=== PATIENT | male | born 1955 | race Caucasian/White ===

== ENCOUNTER 2020-08-23 06:29 | Emergency (ER) | payer MEDICARE ==
[~2020-08-23] VITALS: Ht 188 cm; Wt 89.6 kg
[2020-08-23] MEDS ORDERED: CLAR10CA3 PO (06:58)
[2020-08-23] MEDS ORDERED: TRAM50TA2 PO (06:58)
[2020-08-23] MEDS ORDERED: FAMC500T PO (06:58)
[2020-08-23] MEDS ORDERED: ONDA-83 PO (06:58)
[2020-08-23] MEDS ORDERED: NS 1,000 ML in IV 1 EA IV ONE (08:00)
[2020-08-23 08:41] LABS: HEMATOCRIT 29.7 % (42.0-52.0); HEMOGLOBIN 9.8 g/dl (13.5-17.5); MEAN CORPUSCULAR HEMOGLOBIN 34.8 pg (27.0-33.0); MEAN CORPUSCULAR VOLUME 105.3 fl (80.0-96.0); RED BLOOD COUNT 2.82 10^6/uL (4.30-6.10)
--- NOTE | 2020-08-23 08:42 | REP ---
INDICATION: fever. COMPARISON: None. TECHNIQUE: Single portable AP view of the chest was performed. FINDINGS: There are mild bibasilar fibro atelectatic changes. There is no definite acute infiltrate. There is mild elevation of the right hemidiaphragm. The heart is not significantly enlarged. The mediastinal silhouette is unremarkable. Metallic fixation is seen in the region of the left scapula. IMPRESSION: No acute pulmonary disease.Mild bibasilar fibro atelectatic changes. <Electronically signed by Viral Jennings > 08/23/20 0824
[2020-08-23 08:43] LABS: PLATELET COUNT, AUTOMATED 22 10^3/uL (150-450); WHITE BLOOD COUNT 74.9 10^3/uL (4.0-10.0)
[2020-08-23 08:49] LABS: INR 1.12; PROTHROMBIN TIME 14.6 SECONDS (12.5-14.3)
[2020-08-23 08:50] LABS: PARTIAL THROMBOPLASTIN TIME 41.1 SECONDS (24.2-38.5)
[2020-08-23 09:06] LABS: ALBUMIN 3.2 GM/DL (3.2-5.2); ALT/SGPT 33 U/L (12-78); AMYLASE 28 U/L (25-115); BILIRUBIN,DIRECT < 0.1 MG/DL (0.0-0.2); BILIRUBIN,TOTAL 0.3 MG/DL (0.2-1.0); C REACTIVE PROTEIN QUANTITATIV 8.94 MG/DL (0.00-0.30); TOTAL PROTEIN 7.1 GM/DL (6.4-8.2)
[2020-08-23 09:09] LABS: BLOOD UREA NITROGEN 13 MG/DL (7-18); CALCIUM LEVEL 8.3 MG/DL (8.8-10.2); CARBON DIOXIDE LEVEL 26 MEQ/L (21-32); CHLORIDE LEVEL 108 MEQ/L (98-107); CK-MB VALUE MASS < 1.0 NG/ML (<3.6); CPK CREATINE PHOSPHOKINASE 62 U/L (39-308); CREATININE FOR GFR 1.43 MG/DL (0.70-1.30); GLOMERULAR FILTRATION RATE 52.5 (>49); GLUCOSE, FASTING 103 MG/DL (70-100); MB/CK RELATIVE INDEX 1.61 (< OR =4); POTASSIUM SERUM 3.7 MEQ/L (3.5-5.1); SODIUM LEVEL 140 MEQ/L (136-145)
[2020-08-23 09:39] LABS: ATYPICAL LYMPH 30 % (0-5); BASOPHILS 1 % (0-1); BLAST CELLS 16 % (0-0); LYMPHOCYTES 16 % (16-44); METAMYELOCYTES 1 % (0-0); MONOCYTES 30 % (0-5); MYELOCYTES 4 % (0-0); NEUTROPHILS 2 % (28-66)
[2020-08-23 09:40] LABS: ANISOCYTOSIS 1+; PLATELET ESTIMATE DECREASED (NORMAL)
[2020-08-23 09:41] LABS: SMUDGE CELLS 1+
[2020-08-23 14:49] LABS: INR 1.13; PROTHROMBIN TIME 14.8 SECONDS (12.5-14.3)
[2020-08-23 14:59] LABS: URIC ACID 6.8 MG/DL (3.5-7.2)
--- NOTE | 2020-08-23 15:32 | ECGEPIP ---
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
[2020-08-23 16:25] LABS: APPEARANCE, URINE CLEAR (CLEAR); BACTERIA, URINE AUTO NEGATIVE (NEGATIVE); BILIRUBIN, URINE AUTO NEGATIVE (NEGATIVE); BLOOD, URINE BLOOD 1+ (NEGATIVE); COLOR, URINE YELLOW (YELLOW); GLUCOSE, URINE (UA) AUTO NEGATIVE (NEGATIVE); KETONE, URINE AUTO TRACE mg/dL (NEGATIVE); LEUKOCYTE ESTERASE, URINE AUTO NEGATIVE (NEGATIVE); MUCUS, URINE SMALL (NEGATIVE); NITRITE, URINE AUTO NEGATIVE (NEGATIVE); PROTEIN, URINE AUTO 1+ mg/dL (NEGATIVE); RBC, URINE AUTO 1 /HPF (0-3); SPECIFIC GRAVITY URINE AUTO 1.013 (1.002-1.035); SQUAMOUS EPITHELIAL CELL UR AU 0 /HPF (0-6); UROBILINOGEN, URINE AUTO 0.2 mg/dL (0.0-2.0); WBC, URINE AUTO 1 /HPF (0-3)
[2020-08-23 16:30] VITALS: BP 113/72
== END 2020-08-23 16:35 | disposition short-term general hospital (02) ==
LOC: M ED 06:29
DX: C93 Monocytic leukemia (principal); I48.91 Unspecified atrial fibrillation; Z79.899 Other long term (current) drug therapy; Z87.891 Personal history of nicotine dependence

== ENCOUNTER 2020-10-19 21:59 | Inpatient (IN) | payer MEDICARE ==
[~2020-10-19] VITALS: Ht 188 cm; Wt 84.1 kg
[~2020-10-19 21:59] MED LIST: CARV3.12 PO; CLAR10CA3 PO; CRES10TA PO; FAMC500T PO; LORA-674 PO; MELA3TAB49 PO; ONDA-83 PO; ONDA8TAB10 PO; SM M250T PO; TRAM50TA2 PO; VALA500T5 PO; VORI200T PO
[2020-10-19 23:16] LABS: BASO % 0.2 % (0.0-1.0); HEMATOCRIT 27.5 % (42.0-52.0); LYMPH # 0.6 10^3/uL (1.5-5.0); LYMPH % 5.4 % (24.0-44.0); MEAN CORPUSCULAR HEMOGLOBIN 32.5 pg (27.0-33.0); MEAN CORPUSCULAR HGB CONC 32.7 g/dl (32.0-36.5); MEAN CORPUSCULAR VOLUME 99.3 fl (80.0-96.0); MONO # 1.9 10^3/uL (0.0-0.8); MONO % 18.9 % (2.0-8.0); NEUTROPHILS # 7.7 10^3/uL (1.5-8.5); NEUTROPHILS % 75.2 % (36.0-66.0); PLATELET COUNT, AUTOMATED 102 10^3/uL (150-450); RED BLOOD COUNT 2.77 10^6/uL (4.30-6.10)
[2020-10-19 23:47] LABS: WHITE BLOOD COUNT 10.3 10^3/uL (4.0-10.0)
[2020-10-19 23:51] LABS: ANISOCYTOSIS 4+; PLATELET ESTIMATE DECREASED (NORMAL)
[2020-10-19 23:52] LABS: POLYCHROMASIA 1+
[2020-10-19 23:55] LABS: OVALOCYTES 1+; TEAR DROP CELLS 1+
[2020-10-19 23:56] LABS: SCHISTOCYTES 1+
[2020-10-20] VITALS (12 sets, daily range): BP systolic 127–135; BP diastolic 73–76; O2SAT 93–98
[2020-10-20 00:13] LABS: ALBUMIN 3.6 GM/DL (3.2-5.2); ALT/SGPT 16 U/L (12-78); BILIRUBIN,DIRECT 0.1 MG/DL (0.0-0.2); BILIRUBIN,TOTAL 0.4 MG/DL (0.2-1.0); BLOOD UREA NITROGEN 17 MG/DL (7-18); CALCIUM LEVEL 8.4 MG/DL (8.8-10.2); CARBON DIOXIDE LEVEL 24 MEQ/L (21-32); CHLORIDE LEVEL 106 MEQ/L (98-107); CREATININE FOR GFR 1.16 MG/DL (0.70-1.30); GLOMERULAR FILTRATION RATE > 60.0 (>49); GLUCOSE, FASTING 131 MG/DL (70-100); LIPASE 106 U/L (73-393); POTASSIUM SERUM 4.3 MEQ/L (3.5-5.1); SODIUM LEVEL 138 MEQ/L (136-145); TOTAL PROTEIN 6.9 GM/DL (6.4-8.2)
[2020-10-20] MEDS ORDERED: ONDANSETRON 4MG/2ML VIAL IV ONE (01:35)
[2020-10-20] MEDS ORDERED: NS 1,000 ML IV ONE (01:35)
[2020-10-20] MEDS ORDERED: HYDROMORPHONE HCL 0.5 MG/ 0.5 ML SYRINGE (J1170 PER 1) IV PRN (01:35)
[2020-10-20] MEDS: MORPHINE 2 MG/ML 1ML VIAL (J2270) IV PRN ×2 (01:50→02:12)
--- NOTE | 2020-10-20 03:03 | REPVR ---
PROCEDURE INFORMATION: Exam: CT Chest Without Contrast; Diagnostic Exam date and time: 10/20/2020 1:31 AM Age: 65 years old Clinical indication: Pain; Right-sided; Additional info: Right flank/side pain TECHNIQUE: Imaging protocol: Diagnostic computed tomography of the chest without contrast. Radiation optimization: All CT scans at this facility use at least one of these dose optimization techniques: automated exposure control; mA and/or kV adjustment per patient size (includes targeted exams where dose is matched to clinical indication); or iterative reconstruction. COMPARISON: [place] Chest, 1 view 08/23/2020 8:18 AM FINDINGS: Lungs: Minimal bullous changes with mild coarsening of interstitium and mild scattered fibro-atelectatic change which is greatest in the lower lobes with question of minimal infiltrates, particularly in the right lower lobe. Minimal scattered bronchiectasis. Calcified granuloma in the right middle lobe. Pleural spaces: Unremarkable. No pneumothorax. No pleural effusion. Heart: Unremarkable. No cardiomegaly. No pericardial effusion. Pulmonary arteries: The main pulmonary artery measures 35 mm. Aorta: The ascending thoracic aorta measures 36 mm. Lymph nodes: Small mediastinal lymph nodes which are upper normal. Bones/joints: Metallic staple in the anterior left glenoid. Soft tissues: Unremarkable. IMPRESSION: 1. Minimal bullous change with minimal scattered bronchiectasis. There is mild interstitial coarsening with mild scattered fibro-atelectatic change, greatest in the lower lobes with question of minimal infiltrates and consolidation in the right lower lobe. 2. Evidence of old granulomatous disease with calcified granuloma in the right middle lobe. Electronically signed by: Bharath Ruth On 10/20/2020 03:02:27 AM
--- NOTE | 2020-10-20 03:09 | REPVR ---
PROCEDURE INFORMATION: Exam: CT Abdomen And Pelvis Without Contrast Exam date and time: 10/20/2020 1:31 AM Age: 65 years old Clinical indication: Abdominal pain; Flank; Right; Additional info: Right flank/side pain TECHNIQUE: Imaging protocol: Computed tomography of the abdomen and pelvis without contrast. Radiation optimization: All CT scans at this facility use at least one of these dose optimization techniques: automated exposure control; mA and/or kV adjustment per patient size (includes targeted exams where dose is matched to clinical indication); or iterative reconstruction. COMPARISON: [place] Chest, 1 view 08/23/2020 8:18 AM FINDINGS: Lungs: Bibasilar coarse interstitium with minimal bullous change and mild bilateral lower lobe fibro-atelectatic change with question of minimal right lower lobe infiltrates and possible consolidation. Liver: Normal. No mass. Gallbladder and bile ducts: Minimal gallstones layering in the gallbladder. Pancreas: Normal. No ductal dilation. Spleen: Normal. No splenomegaly. Adrenal glands: Normal. No mass. Kidneys and ureters: Normal. No hydronephrosis. Stomach and bowel: There are a few colonic diverticula without diverticulitis. Appendix: A normal appendix is seen. Intraperitoneal space: Unremarkable. No free air. No significant fluid collection. Vasculature: There is mild calcification of the abdominal aorta. Lymph nodes: Unremarkable. No enlarged lymph nodes. Urinary bladder: Unremarkable as visualized. Reproductive: Unremarkable as visualized. Bones/joints: Unremarkable. No acute fracture. Soft tissues: Unremarkable. IMPRESSION: 1. Bibasilar coarse pulmonary interstitium with minimal bullous change and mild bilateral lower lobe fibro-atelectatic change with question of minimal right lower lobe infiltrates and possible consolidation. 2. Minimal cholelithiasis. 3. Otherwise negative CT abdomen/pelvis. No renal or ureteral calculi are evident and there is no evidence of obstructive uropathy. Electronically signed by: Bharath Ruth On 10/20/2020 03:09:13 AM
[2020-10-20] MEDS: HYDROMORPHONE HCL 0.5 MG/ 0.5 ML SYRINGE (J1170 PER 1) IV PRN ×7 (03:28→21:18)
[2020-10-20] MEDS ORDERED: cefTRIAXone SOD 2 GM in D5W MINI-BAG PLUS 50 ML IV ONE (07:10)
[2020-10-20 08:17] LABS: RSV AMPLIFICATION NEGATIVE (NEGATIVE)
[2020-10-20] MEDS ORDERED: ACETAMINOPHEN TAB 650MG DOSE (2X325MG) PO PRN (08:50)
[2020-10-20] MEDS ORDERED: ISOVUE-370 76% 100ML VIAL As Ordered ONE (08:55)
[2020-10-20] MEDS: VORICONAZOLE 200MG TABLET (VFEND) PO SCH ×2 (09:00→21:38)
[2020-10-20] MEDS: CARVedilol 3.125 MG TAB PO SCH ×2 (09:00→21:18)
[2020-10-20] MEDS ORDERED: ENOXAPARIN 80MG/0.8ML SYRINGE (J1650 PER 10MG) SC SCH ×2 (09:00→14:00)
[2020-10-20] MEDS ORDERED: AZITHROMYCIN INJ 500 MG, VIAL MATE ADAPTER 1 EACH in NS 250 ML IV ONE (09:15)
--- NOTE | 2020-10-20 09:38 | REP ---
INDICATION: Hypoxia, pleuritic pain, PE?. COMPARISON: CT chest without contrast 10/20/2020, 1:58 a.m. TECHNIQUE: CT angiogram chest performed following the intravenous administration of 100 cc of Isovue 370. Sagittal and coronal reconstruction images are performed. FINDINGS: Lungs: Diffuse fibrotic changes are again seen bilaterally. There is increased dependent atelectatic change on the left. On the right there is increased consolidative infiltrate or atelectasis in the posterior upper and lower lobes. Mediastinum: No adenopathy. Pulmonary arteries: Pulmonary embolism is seen in the right lower lobe pulmonary artery, extending into secondary branches. Pulmonary embolism is seen in a 2nd order branch anteriorly in the left upper lobe. Hannah: No adenopathy. Axilla: No adenopathy. Pleura: No effusion. Heart: Not enlarged. Thoracic aorta: No aneurysm or dissection. Upper abdominal structures: There is a small hiatal hernia. Visualized osseous structures: There are degenerative changes of the spine. IMPRESSION: Pulmonary embolism in the right lower lobe pulmonary artery extending in the secondary branches. There is a small pulmonary embolism in a 2nd order branch anteriorly in the left upper lobe. Increased dependent atelectatic change on the left. Increased posterior atelectasis or infiltrate right upper and lower lobes. <Electronically signed by Viral Jennings > 10/20/20 [id number]
[2020-10-20] MEDS ORDERED: ACET500T15 PO (10:10)
[2020-10-20] MEDS ORDERED: MELA3TAB30 PO (10:10)
[2020-10-20] MEDS ORDERED: HOME MED LIST COMPLETE! XX SCH (10:10)
[2020-10-20] MEDS ORDERED: ROSU20TA5 PO (10:10)
[2020-10-20] MEDS ORDERED: LORA-674 PO (10:10)
[2020-10-20] MEDS ORDERED: ONDA8TAB8 PO (10:10)
[2020-10-20] MEDS: LIDOCAINE 5% (LIDODERM) PATCH TD SCH (11:10)
[2020-10-20] MEDS: NS 1,000 ML IV SCH ×2 (11:12→23:09)
[2020-10-20] MEDS ORDERED: ENOXAPARIN 100MG/1ML SYRINGE (J1650 PER 10MG) SC SCH (14:00)
--- NOTE | 2020-10-20 14:17 | HPEPDOC ---
General Date of Admission Oct 20, 2020 at 08:43 Date of Service: Oct 20, 2020 Chief Complaint The patient is a 65-year-old male admitted with a reason for visit of Intractable Pain, Pneumonia. History of Present Illness Mr. Alford is a 65-year-old male with recurrent aseptic meningitis, recently diagnosed atrial fibrillation, and recently diagnosed AML who presents with intractable right-sided pleuritic pain. Patient was hospitalized at an outside facility for his AML. He was discharged about 3 weeks ago. He stayed in the hospital for about 39 days. Patient was recently seen at our [facility] on October 18, 2020. Otherwise, he denies any recent travel. Otherwise he tells me that yesterday he suddenly had right flank pain. Denies any history of nephrolithiasis. Denies any history of trauma. He did not know what had brought on the pain. He came into the ED for evaluation. CT of the abdomen pelvis was negative for nephrolithiasis, but suggested a right lower lobe p neumonia. Admission was requested for pneumonia and intractable pain. When I saw the patient, he was in distress. He breathe shallowly due to pleuritic pain. He tells me that his taste temperature at home was 99.9. Reports shortness of breath due to the pain. Pain is worse with deep breath and better with Dilaudid. Morphine did not help with the pain. Denies cough, abdominal pain, diarrhea, or dysuria. I ordered a CT angio chest as patient required oxygen. CT angio chest demonstrates pulmonary embolism in the right lower lobe and extending into secondary branches there is infiltrate in the right upper and right lower lobes. The heart is not enlarged. Patient will be admitted for intractable pain secondary to pulmonary embolus and pneumonia Of note, patient was not on anticoagulation despite having atrial fibrillation. He denies any history of intracranial bleed or GI bleed. He wanted to wait on the decision of anticoagulation due to his AML. I explained that the patient had a blood clot and will need to be on a blood thinner. He is okay being on a blood thinner. Home Medications Scheduled Carvedilol (Carvedilol) 3.125 Mg Tablet, 3.125 MG PO BID, (Reported) Loratadine (Loratadine) 10 Mg Tablet, 10 MG PO DAILY, (Reported) Magnesium (Magnesium) 250 Mg Tablet, 250 MG PO TID, (Reported) Melatonin (Melatonin) 3 Mg Tablet, 3 MG PO QHS, (Reported) Rosuvastatin Calcium (Rosuvastatin Calcium) 20 Mg Tablet, 20 MG PO QHS, (Reported) Valacyclovir HCl (Valacyclovir) 500 Mg Tablet, 500 MG PO DAILY, (Reported) Voriconazole (Voriconazole) 200 Mg Tablet, 200 MG PO BID, (Reported) Scheduled PRN Acetaminophen (Acetaminophen) 500 Mg Tablet, 1,000 MG PO Q6H PRN for PAIN LEVEL 1-5, (Reported) Ondansetron (Ondansetron Odt) 8 Mg Tab.rapdis, 8 MG PO TID PRN for NAUSEA OR VOMITING, (Reported) Allergies Coded Allergies: No Known Allergies (Verified Allergy, Unknown, 08/23/20) Past Medical History Medical History 1. Recurrent aseptic meningitis since 45 years old 2. Recently diagnosed A. fib (has not decided if he wants to be on anticoagulation at this time, understands risks) 3. GERD 4. High cholesterol 5. AML Surgical History 1. Shoulder surgery x2 2. Knee scoped Family History Father: at the age of 101. History of hypertension and heart disease Mother: at the age of 93. Denies any known past medical history Social History * Smoker: former Smoker Alcohol: rarely Drugs: denies A-FIB/CHADSVASC A-FIB History Current/History of A-Fib/PAF?: Yes Current PO Anticoag Therapy: No Review of Systems Constitutional: Reports: Fever (reports 99.9 at highest at home); Denies: Chills Eyes: Denies: Vision change ENT: Denies: Sore Throat Skin: Denies: Rash Pulmonary: Reports: Dyspnea, Pleuritic Chest Pain; Denies: Cough Cardiovascular: Reports: Other Symptoms (pain with breath) Gastrointestinal: Denies: Nausea, Abdominal Pain, Diarrhea Genitourinary: Denies: Dysuria Hematologic: Denies: Bruising Neurological: Denies: Numbness Psych: Denies: Anxiety, Depression Physical Examination General Exam: Positive: Alert, Cooperative, Mild Distress Eye Exam: Positive: EOMI; Negative: Sclera icteric ENT Exam: Positive: Atraumatic Neck Exam: Positive: Supple Chest Exam: Positive: Diminished (shallow breathing) Heart Exam: Positive: Rate Normal, Regular Rhythm Abdomen Exam: Positive: Normal bowel sounds, Soft; Negative: Tenderness Extremity Exam: Negative: Edema Neuro Exam: Positive: Normal Speech, Cranial Nerves 3-12 NL Psych Exam: Positive: Mental status NL, Mood NL Vital Signs Vital Signs Date Time Temp Pulse Resp B/P (MAP) Pulse Ox O2 Delivery O2 Flow Rate FiO2 10/20/20 12:29 18 10/20/20 12:15 85 121/74 (90) 96 Nasal Cannula 2.0 10/20/20 09:15 100.1 Laboratory Data Labs 24H Laboratory Tests 2 10/19/20 23:02: Immature Granulocyte % (Auto) 0.3, Neutrophils (%) (Auto) 75.2H, Lymphocytes (%) (Auto) 5.4L, Monocytes (%) (Auto) 18.9H, Eosinophils (%) (Auto) 0.0, Basophils (%) (Auto) 0.2, Neutrophils # (Auto) 7.7, Lymphocytes # (Auto) 0.6L, Monocytes # (Auto) 1.9H, Eosinophils # (Auto) 0.0, Basophils # (Auto) 0.0, Nucleated Red Blood Cells % (auto) 0.3H, Platelet Estimate DECREASED, Polychromasia 1+, Anisocytosis 4+, Macrocytosis 1+, Tear Drop Cells 1+, Ovalocytes 1+, Schistocytes 1+, Anion Gap 8, Glomerular Filtration Rate > 60.0, Calcium Level 8.4L, Total Bilirubin 0.4#, Direct Bilirubin 0.1, Aspartate Amino Transf (AST/SGOT) 11, Alanine Aminotransferase (ALT/SGPT) 16, Alkaline Phosphatase 92, Total Protein 6.9, Albumin 3.6, Albumin/Globulin Ratio 1.1, Lipase 106 10/20/20 03:40: Urine Color YELLOW, Urine Appearance CLEAR, Urine pH 6.0, Urine Specific [place] 1.016, Urine Protein NEGATIVE, Urine Glucose (UA) NEGATIVE, Urine Ketones NEGATIVE, Urine Blood NEGATIVE, Urine Nitrite NEGATIVE, Urine Bilirubin NEGATIVE, Urine Urobilinogen 0.2, Urine Leukocyte Esterase NEGATIVE, Urine WBC (Auto) 1, Urine RBC (Auto) 1, Urine Hyaline Casts (Auto) 0, Urine Bacteria (Auto) NEGATIVE, Urine Squamous Epithelial Cells 0, Urine Mucus (Auto) SMALL, Urine Sperm (Auto) 10/20/20 07:21: Coronavirus (COVID-19)(PCR) NEGATIVE, Influenza Type A (RT-PCR) NEGATIVE, Influenza Type B (RT-PCR) NEGATIVE, Respiratory Syncytial Virus (PCR) NEGATIVE CBC/BMP Laboratory Tests 10/19/20 23:02 Assessment/Plan Mr. Alford is a 65-year-old male with recurrent aseptic meningitis, recently diagnosed atrial fibrillation, and recently diagnosed AML who presents with intractable right-sided pleuritic pain. I suspect that due to patient's history of AML, patient is more hypercoagulable. Patient's history is not suggestive of provoked pulmonary embolus. Patient will be on a blood thinner lifelong, especially since he has atrial fibrillation. Although, at time of examination, his heart rate was regular. Since morphine was not effective for pain control, patient will be on Dilaudid. Utilizing Lovenox due to patient's history of AML Plan / VTE VTE Prophylaxis Ordered?: Yes Plan Plan 1. Right lower lobe pulmonary embolus Unprovoked Patient may be more hypercoagulable with history of AML Patient will be on lifelong anticoagulation due to A. fib as well While here, we will use full dose Lovenox 2. Intractable pain Most likely due to pulmonary embolus Managing acute PE Morphine was not effective for pain control Start Dilaudid, wean as tolerated 3. Paroxysmal atrial fibrillation Continue Coreg Patient on full dose Lovenox 4. Hyperlipidemia Continue rosuvastatin 5. Insomnia Substitute melatonin for Rozerem 6. DVT prophylaxis On full dose Lovenox Disposition: Pending improvement in pleuritic pain DEREK KENNEDY DO Oct 20, 2020 13:00
[2020-10-20 14:31] LABS: INR 1.08; PARTIAL THROMBOPLASTIN TIME 35.4 SECONDS (25.9-37.0); PROTHROMBIN TIME 14.4 SECONDS (12.7-14.5)
[2020-10-20] MEDS ORDERED: ONDANSETRON 4 MG ORAL DISINTEGRATING TAB PO PRN (16:00)
[2020-10-20] MEDS: LORATADINE 10 MG TAB PO SCH (18:03)
[2020-10-20] MEDS: valACYclovir HCL 500 MG TAB PO SCH (18:03)
[2020-10-20] MEDS: ROSUVASTATIN 10 MG TAB (CRESTOR) PO SCH (21:18)
[2020-10-20] MEDS: RAMELTEON 8 MG TAB (ROZEREM) PO SCH (21:18)
[2020-10-20] MEDS: **NOTE PATIENT COMMENT** MISC XX SCH (21:39)
[2020-10-21] VITALS (28 sets, daily range): BP systolic 108–121; BP diastolic 66–75; O2SAT 95–100
[2020-10-21] MEDS: ENOXAPARIN 80MG/0.8ML SYRINGE (J1650 PER 10MG) SC SCH ×2 (03:18→15:00)
[2020-10-21] MEDS: HYDROMORPHONE HCL 0.5 MG/ 0.5 ML SYRINGE (J1170 PER 1) IV PRN ×5 (03:19→21:44)
[2020-10-21 07:33] LABS: BASO % 0.2 % (0.0-1.0); HEMATOCRIT 23.3 % (42.0-52.0); HEMOGLOBIN 7.5 g/dl (13.5-17.5); LYMPH # 0.4 10^3/uL (1.5-5.0); MEAN CORPUSCULAR HEMOGLOBIN 32.9 pg (27.0-33.0); MEAN CORPUSCULAR HGB CONC 32.2 g/dl (32.0-36.5); MEAN CORPUSCULAR VOLUME 102.2 fl (80.0-96.0); MONO # 1.7 10^3/uL (0.0-0.8); MONO % 17.6 % (2.0-8.0); NEUTROPHILS # 7.4 10^3/uL (1.5-8.5); NEUTROPHILS % 77.8 % (36.0-66.0); PLATELET COUNT, AUTOMATED 105 10^3/uL (150-450); RED BLOOD COUNT 2.28 10^6/uL (4.30-6.10)
[2020-10-21 07:36] LABS: WHITE BLOOD COUNT 9.5 10^3/uL (4.0-10.0)
[2020-10-21] MEDS: VORICONAZOLE 200MG TABLET (VFEND) PO SCH ×2 (08:53→20:48)
[2020-10-21] MEDS: cefTRIAXone SOD 1 GM in D5W MINI-BAG PLUS 50 ML IV SCH (08:53)
[2020-10-21] MEDS: LORATADINE 10 MG TAB PO SCH (08:55)
[2020-10-21] MEDS: CARVedilol 3.125 MG TAB PO SCH ×2 (08:55→20:48)
[2020-10-21] MEDS: valACYclovir HCL 500 MG TAB PO SCH (08:56)
[2020-10-21] MEDS: LIDOCAINE 5% (LIDODERM) PATCH TD SCH (08:56)
[2020-10-21 09:56] LABS: BLOOD UREA NITROGEN 14 MG/DL (7-18); CALCIUM LEVEL 8.2 MG/DL (8.8-10.2); CARBON DIOXIDE LEVEL 25 MEQ/L (21-32); CHLORIDE LEVEL 108 MEQ/L (98-107); CREATININE FOR GFR 0.82 MG/DL (0.70-1.30); GLOMERULAR FILTRATION RATE > 60.0 (>49); GLUCOSE, FASTING 125 MG/DL (70-100); POTASSIUM SERUM 3.8 MEQ/L (3.5-5.1); SODIUM LEVEL 138 MEQ/L (136-145)
--- NOTE | 2020-10-21 14:16 | IPNPDOC ---
Subjective Date Seen The patient was seen on 10/21/20. Subjective Chief Complaint/HPI Mr. Alford is a 65-year-old male with recurrent aseptic meningitis, recently diagnosed atrial fibrillation, and recently diagnosed AML who presents with intractable right-sided pleuritic pain. Patient was seen this morning. The pleuritic chest pain has improved, but still requiring IV Dilaudid to help control. Otherwise, his H&H dropped. Unclear if it was dilutional effect from fluids. Discontinued IV fluids and repeating H&H Objective Physical Examination General Exam: Positive: Alert, Cooperative, Mild Distress Eye Exam: Positive: EOMI; Negative: Sclera icteric ENT Exam: Positive: Atraumatic Neck Exam: Positive: Supple Chest Exam: Positive: Diminished (shallow breathing) Heart Exam: Positive: Rate Normal, Regular Rhythm Abdomen Exam: Positive: Normal bowel sounds, Soft; Negative: Tenderness Extremity Exam: Negative: Edema Neuro Exam: Positive: Normal Speech, Cranial Nerves 3-12 NL Psych Exam: Positive: Mental status NL, Mood NL Assessment /Plan Assessment Mr. Alford is a 65-year-old male with recurrent aseptic meningitis, recently diagnosed atrial fibrillation, and recently diagnosed AML who presents with intractable right-sided pleuritic pain. I suspect that due to patient's history of AML, patient is more hypercoagulable. Patient's history is not suggestive of provoked pulmonary embolus. Patient will be on a blood thinner lifelong, especially since he has atrial fibrillation. Although, at time of examination, his heart rate was regular. Since morphine was not effective for pain control, patient will be on Dilaudid. Utilizing Lovenox due to patient's history of AML. Patient's H&H dropped this morning. Will order anemia work up and repeat H&H. Plan/VTE VTE Prophylaxis Ordered?: Yes Plan 1. Right lower lobe pulmonary embolus Unprovoked Patient may be more hypercoagulable with history of AML Patient will be on lifelong anticoagulation due to A. fib as well While here, we will use full dose Lovenox 2. Intractable pain Most likely due to pulmonary embolus Managing acute PE Morphine was not effective for pain control Start Dilaudid, wean as tolerated 3. Anemia -Hemoglobin decreased today. Unclear etiology but start anemia work up -Repeating H&H today 4. Acquired pneumonia Seen on CT angio chest in the right upper and right lower lobes Continue ceftriaxone and azithromycin day 2 5. Paroxysmal atrial fibrillation Continue Coreg Patient on full dose Lovenox 6. Hyperlipidemia Continue rosuvastatin 7. Insomnia Substitute melatonin for Rozerem 8. DVT prophylaxis On full dose Lovenox Disposition: Pending improvement in pleuritic pain and repeat H&H VS, I&O, 24H, Fishbone Vital Signs/I&O Vital Signs Date Time Temp Pulse Resp B/P (MAP) Pulse Ox O2 Delivery O2 Flow Rate FiO2 10/21/20 12:00 99.4 80 22 110/69 (83) 98 Nasal Cannula 2.0 I&O- Last 24 Hours up to 6 AM 10/21/20 05:59 Intake Total 500 ml Output Total 1175 ml Balance -675 ml Laboratory Data 24H LABS Laboratory Tests 2 10/21/20 05:05: Immature Granulocyte % (Auto) 0.4, Neutrophils (%) (Auto) 77.8H, Lymphocytes (%) (Auto) 4.0L, Monocytes (%) (Auto) 17.6H, Eosinophils (%) (Auto) 0.0, Basophils (%) (Auto) 0.2, Neutrophils # (Auto) 7.4, Lymphocytes # (Auto) 0.4L, Monocytes # (Auto) 1.7H, Eosinophils # (Auto) 0.0, Basophils # (Auto) 0.0, Nucleated Red Blood Cells % (auto) 0.0, Anion Gap 5L, Glomerular Filtration Rate > 60.0, Calcium Level 8.2L, Magnesium Level 2.0 CBC/BMP Laboratory Tests 10/21/20 05:05 DEREK KENNEDY DO Oct 21, 2020 14:16
[2020-10-21 14:28] LABS: MEAN CORPUSCULAR HGB CONC 31.5 g/dl (32.0-36.5); MEAN CORPUSCULAR VOLUME 101.5 fl (80.0-96.0); PLATELET COUNT, AUTOMATED 122 10^3/uL (150-450); RED BLOOD COUNT 1.94 10^6/uL (4.30-6.10); WHITE BLOOD COUNT 9.4 10^3/uL (4.0-10.0)
[2020-10-21 14:40] LABS: HEMATOCRIT 19.7 % (42.0-52.0)
[2020-10-21 14:42] LABS: HEMOGLOBIN 6.2 g/dl (13.5-17.5)
[2020-10-21] MEDS: AZITHROMYCIN INJ 500 MG, VIAL MATE ADAPTER 1 EACH in NS 250 ML IV SCH (15:01)
[2020-10-21 15:03] LABS: PERCENT SATURATION 13.4 % (19.7-50.0)
[2020-10-21] MEDS ORDERED: NS 1,000 ML IV SCH (15:20)
[2020-10-21] MEDS ORDERED: ISOVUE-370 76% 100ML VIAL As Ordered ONE (15:52)
--- NOTE | 2020-10-21 18:26 | REPVR ---
PROCEDURE INFORMATION: Exam: CTA Abdomen and Pelvis With Contrast Exam date and time: 10/21/2020 5:06 PM Age: 65 years old Clinical indication: Other: Looking for extravasation of blood; Additional info: Looking for extravasation of blood. Dry CT abd/pelvis first TECHNIQUE: Imaging protocol: Computed tomographic angiography of the abdomen and pelvis with contrast material. 3D rendering (Not supervised by radiologist): MIP and/or 3D reconstructed images were created by the technologist. Radiation optimization: All CT scans at this facility use at least one of these dose optimization techniques: automated exposure control; mA and/or kV adjustment per patient size (includes targeted exams where dose is matched to clinical indication); or iterative reconstruction. Contrast material: ISOVUE 370; Contrast volume: 100 ml; Contrast route: INTRAVENOUS (IV); COMPARISON: CT ABD PELVIS W/O CONTRAST 10/20/2020 2:00 AM FINDINGS: Lungs: Bibasilar pulmonary infiltrates likely represent atelectasis. Clinical correlation to exclude infection suggested. Pleural spaces: Small bilateral pleural effusions. Heart: There is no evidence of heart strain. Pulmonary arteries: Pulmonary emboli demonstrated in the intralobar and lower lobe segmental pulmonary arteries on the right. Aorta: There is moderate atherosclerotic changes demonstrated in the abdominal aorta. No evidence of an aneurysm or dissection. No occlusion. Celiac trunk and mesenteric arteries: Normal appearance of the celiac and superior mesenteric arteries. Renal arteries: Normal appearance of the renal arteries without evidence of significant stenosis or poststenotic dilatation. Right iliac arteries: Mild atherosclerotic changes in the right iliac arteries without evidence of aneurysm dissection or occlusion. Left iliac arteries: Mild atherosclerotic changes in the left iliac arteries without evidence of aneurysm dissection or occlusion. Liver: 1.4 cm simple cyst in segment 2 left lobe of the liver. Liver otherwise unremarkable. Gallbladder and bile ducts: Cholelithiasis and layering sludge demonstrated in the lumen of the gallbladder. No pericholecystic fluid or significant gallbladder wall thickening. Pancreas: Unremarkable. No mass. No ductal dilation. Spleen: Unremarkable. No splenomegaly. Adrenal glands: Unremarkable. No mass. Kidneys and ureters: Small simple cyst right kidney measures 7 mm. No follow-up suggested. Mild bilateral perinephric inflammatory changes may be chronic. Clinical correlation to exclude acute perinephric inflammatory changes suggested. Stomach and bowel: Unremarkable. No obstruction. No mucosal thickening. Appendix: No evidence of appendicitis. Intraperitoneal space: Unremarkable. No free air. No significant fluid collection. Lymph nodes: Unremarkable. No enlarged lymph nodes. Urinary bladder: Mild thickening of the bladder wall may indicate changes secondary to chronic bladder outlet obstruction. Clinical correlation to exclude cystitis suggested. Increased density demonstrated within the lumen of the urinary bladder may indicate proteinaceous and/or hemorrhagic contents. Reproductive: The prostate gland demonstrates mild hyperplasia. Bones/joints: Dextroscoliosis. Moderate central spinal stenosis L3-L4 and L4-L5. Soft tissues: Subcutaneous air demonstrated in the left flank likely iatrogenic in this patient with no reported history of trauma. There is a small umbilical hernia. There is no evidence of incarceration. IMPRESSION: 1. Bibasilar pulmonary infiltrates likely represent atelectasis. Clinical correlation to exclude infection suggested. 2. Pulmonary emboli demonstrated in the intralobar and lower lobe segmental pulmonary arteries on the right. 3. There is no evidence of heart strain. 4. Cholelithiasis and layering sludge demonstrated in the lumen of the gallbladder. No pericholecystic fluid or significant gallbladder wall thickening. 5. Mild bilateral perinephric inflammatory changes may be chronic. Clinical correlation to exclude acute perinephric inflammatory changes suggested. 6. Mild prostatic hyperplasia. 7. Bladder wall thickening as described above. Correlation to exclude cystitis suggested. Increased density in intraluminal fluid may indicate proteinaceous/hemorrhagic fluid contents. 8. There is moderate atherosclerotic changes demonstrated in the abdominal aorta. No evidence of an aneurysm or dissection. No occlusion. Branch arteries unremarkable. A critical call has been made to speak with the ordering physician/practitioner. This report will be amended once consultation has occurred. Electronically signed by: Andres Caicedo On 10/21/2020 18:25:42 PM
--- NOTE | 2020-10-21 18:35 | REPVR ---
PROCEDURE INFORMATION: Exam: CT Abdomen And Pelvis Without Contrast Exam date and time: 10/21/2020 5:06 PM Age: 65 years old Clinical indication: Other: Acute drop in h TECHNIQUE: Imaging protocol: Computed tomography of the abdomen and pelvis without contrast. Radiation optimization: All CT scans at this facility use at least one of these dose optimization techniques: automated exposure control; mA and/or kV adjustment per patient size (includes targeted exams where dose is matched to clinical indication); or iterative reconstruction. COMPARISON: CT ABD PELVIS W/O CONTRAST 10/20/2020 2:00 AM FINDINGS: Lungs: Calcified granuloma right middle lobe. Pleural spaces: Bibasilar pulmonary infiltrates and small pleural effusions redemonstrated. Clinical correlation to exclude infection suggested. Liver: Normal. No mass. Gallbladder and bile ducts: Increased density within the gallbladder containing small calculi without significant wall thickening. Finding likely represents layering sludge. Pancreas: Normal. No ductal dilation. Spleen: Normal. No splenomegaly. Adrenal glands: Normal. No mass. Kidneys and ureters: Normal. No hydronephrosis. Stomach and bowel: Unremarkable. No obstruction. No mucosal thickening. Appendix: No evidence of appendicitis. Intraperitoneal space: Unremarkable. No free air. No significant fluid collection. Vasculature: The aortoiliac vessels demonstrate moderate atherosclerotic calcification. Lymph nodes: Unremarkable. No enlarged lymph nodes. Urinary bladder: Redemonstration of a thickened bladder wall with increased density within the lumen of the bladder which may suggest proteinaceous and/or hemorrhagic contents. Clinical correlation needed. Reproductive: The prostate gland demonstrates mild hyperplasia. Bones/joints: Unremarkable. No acute fracture. Soft tissues: Small umbilical hernia. Small gas collection in the left flank likely iatrogenic in this patient with no reported history of trauma. IMPRESSION: 1. Bibasilar pulmonary infiltrates and small pleural effusions redemonstrated. Clinical correlation to exclude infection suggested. 2. Mild prostatic hyperplasia. 3. Increased density within the gallbladder containing small calculi without significant wall thickening. Finding likely represents layering sludge. 4. Redemonstration of a thickened bladder wall with increased density within the lumen of the bladder which may suggest proteinaceous and/or hemorrhagic contents. Clinical correlation needed. Electronically signed by: Andres Caicedo On 10/21/2020 18:35:16 PM
[2020-10-21] MEDS: RAMELTEON 8 MG TAB (ROZEREM) PO SCH (20:48)
[2020-10-21] MEDS: ROSUVASTATIN 10 MG TAB (CRESTOR) PO SCH (20:48)
[2020-10-21] MEDS: **NOTE PATIENT COMMENT** MISC XX SCH (21:00)
[2020-10-21] MEDS ORDERED: KETOROLAC 30 MG/ML 1ML VIAL IV ONE (22:30)
[2020-10-21 23:20] LABS: HEMATOCRIT 27.4 % (42.0-52.0); HEMOGLOBIN 9.1 g/dl (13.5-17.5); MEAN CORPUSCULAR HEMOGLOBIN 32.2 pg (27.0-33.0); MEAN CORPUSCULAR HGB CONC 33.2 g/dl (32.0-36.5); MEAN CORPUSCULAR VOLUME 96.8 fl (80.0-96.0); PLATELET COUNT, AUTOMATED 106 10^3/uL (150-450); RED BLOOD COUNT 2.83 10^6/uL (4.30-6.10); WHITE BLOOD COUNT 7.5 10^3/uL (4.0-10.0)
[2020-10-22] VITALS (9 sets, daily range): BP systolic 99–126; BP diastolic 57–78
[2020-10-22] MEDS: HYDROMORPHONE HCL 0.5 MG/ 0.5 ML SYRINGE (J1170 PER 1) IV PRN (00:26)
[2020-10-22 05:18] LABS: HEMATOCRIT 26.3 % (42.0-52.0); HEMOGLOBIN 8.8 g/dl (13.5-17.5); MEAN CORPUSCULAR HEMOGLOBIN 32.5 pg (27.0-33.0); MEAN CORPUSCULAR HGB CONC 33.5 g/dl (32.0-36.5); RED BLOOD COUNT 2.71 10^6/uL (4.30-6.10); WHITE BLOOD COUNT 6.2 10^3/uL (4.0-10.0)
[2020-10-22 05:19] LABS: PLATELET COUNT, AUTOMATED 98 10^3/uL (150-450)
[2020-10-22 05:33] LABS: BLOOD UREA NITROGEN 19 MG/DL (7-18); CALCIUM LEVEL 7.6 MG/DL (8.8-10.2); CARBON DIOXIDE LEVEL 25 MEQ/L (21-32); CHLORIDE LEVEL 108 MEQ/L (98-107); CREATININE FOR GFR 0.88 MG/DL (0.70-1.30); GLOMERULAR FILTRATION RATE > 60.0 (>49); GLUCOSE, FASTING 110 MG/DL (70-100); MAGNESIUM LEVEL 2.1 MG/DL (1.8-2.4); POTASSIUM SERUM 3.7 MEQ/L (3.5-5.1); SODIUM LEVEL 139 MEQ/L (136-145)
[2020-10-22] MEDS: VORICONAZOLE 200MG TABLET (VFEND) PO SCH ×2 (08:52→21:39)
[2020-10-22] MEDS: valACYclovir HCL 500 MG TAB PO SCH (08:53)
[2020-10-22] MEDS: cefTRIAXone SOD 1 GM in D5W MINI-BAG PLUS 50 ML IV SCH (08:53)
[2020-10-22] MEDS: LORATADINE 10 MG TAB PO SCH (08:53)
[2020-10-22] MEDS: LIDOCAINE 5% (LIDODERM) PATCH TD SCH (08:54)
[2020-10-22] MEDS: CARVedilol 3.125 MG TAB PO SCH ×2 (08:54→21:41)
--- NOTE | 2020-10-22 09:59 | IPNPDOC ---
Text Note Date of Service The patient was seen on 10/22/20. NOTE Hospitalist Progress Note Subjective: Patient is reclined in the bed when I entered the room. He reports that his pleuritic chest pain is significantly improved at this time for which he is grateful. Besides that, he is feeling fatigued, and somewhat lethargic. His last dose of Dilaudid was given at approximately midnight last night, therefore he states that he is feeling a little bit more clear headed at this time. Otherwise, he does not voice any other complaints. Objective: General: Awake, alert, oriented 3. Not in any acute distress. HEENT: Head normocephalic, atraumatic, sclera are nonicteric. Hearing is grossly intact to conversation. Respiratory: Clear to auscultation bilaterally with no wheezes, rales, or rhonchi. Cardiovascular: Regular rate and rhythm, with no rubs, gallops, or murmur. Abdomen: Soft, nontender, nondistended, no hepatosplenomegaly appreciated. Bowel sounds present. Extremities: 2+ pulses in the radial and dorsalis pedis bilaterally. No evidence of clubbing or cyanosis. Assessment/Plan: 1. Right lower lobe pulmonary embolus Unprovoked Patient may be more hypercoagulable with history of AML Patient will be on lifelong anticoagulation due to A. fib as well While here, we will use full dose Lovenox 2. Intractable pain Most likely due to pulmonary embolus Managing acute PE Morphine was not effective for pain control Start Dilaudid, wean as tolerated --Significant improvement in pain today 3. Anemia -CT angio of the chest, as well as abdomen/pelvis did not demonstrate any areas of extravasation. Apparently does have an increased density within the bladder which may be hemorrhagic, however on his urinalysis he only had 1+ blood, which would not likely account for the loss of almost 3 units of blood on labs. It is also suspect that this may be secondary to hemodilution. -Regardless, he received 2 units of PRBCs yesterday, H&H improved to 9.1 last night, and then was 8.8 this morning. Will repeat H&H this afternoon at 1300 to see if he is stable or trending down once again. -Continue heparin for anticoagulation for the time being 4. Acquired pneumonia Seen on CT angio chest in the right upper and right lower lobes Continue ceftriaxone and azithromycin (started 10/21/2020) 5. Paroxysmal atrial fibrillation Continue Coreg Patient was previously on therapeutic dose of Lovenox, but this was switched over to heparin due to bleeding 6. Hyperlipidemia Continue rosuvastatin 7. Insomnia Substitute melatonin for Rozerem 8. DVT prophylaxis On anticoagulation as indicated above Disposition: Pending improvement in pleuritic pain and stabilization of H&H while on blood thinners, as he will need to be on anticoagulation for life VS,[place], I+O VS, Fishbone, I+O Laboratory Tests 10/21/20 14:11 10/21/20 22:54 10/22/20 04:54 Vital Signs Date Time Temp Pulse Resp B/P (MAP) Pulse Ox O2 Delivery O2 Flow Rate FiO2 10/22/20 08:54 66 107/71 10/22/20 08:00 97.7 14 97 Nasal Cannula 2.0 I&O- Last 24 Hours up to 6 AM 10/22/20 06:00 Intake Total 1750 ml Output Total 1625 ml Balance 125 ml PARISH GAVIN DO Oct 22, 2020 09:59
[2020-10-22 13:00] LABS: HEMATOCRIT 26.6 % (42.0-52.0); HEMOGLOBIN 8.9 g/dl (13.5-17.5)
[2020-10-22] MEDS: AZITHROMYCIN INJ 500 MG, VIAL MATE ADAPTER 1 EACH in NS 250 ML IV SCH (15:11)
[2020-10-22] MEDS: **NOTE PATIENT COMMENT** MISC XX SCH (21:00)
[2020-10-22] MEDS: NORCO, ANEXSIA 5/325MG TABLET (HYDROcodone/ACETAMINOPHEN) PO PRN (21:39)
[2020-10-22] MEDS: RAMELTEON 8 MG TAB (ROZEREM) PO SCH (21:39)
[2020-10-22] MEDS: ROSUVASTATIN 10 MG TAB (CRESTOR) PO SCH (21:39)
[2020-10-22 22:03] LABS: HEMOGLOBIN 9.3 g/dl (13.5-17.5)
[2020-10-23] VITALS: O2SAT 90
[2020-10-23 06:00] VITALS: BP 107/68
[2020-10-23 07:07] LABS: HEMATOCRIT 26.6 % (42.0-52.0); HEMOGLOBIN 8.9 g/dl (13.5-17.5); MEAN CORPUSCULAR HEMOGLOBIN 31.8 pg (27.0-33.0); MEAN CORPUSCULAR HGB CONC 33.5 g/dl (32.0-36.5); PLATELET COUNT, AUTOMATED 118 10^3/uL (150-450); WHITE BLOOD COUNT 3.8 10^3/uL (4.0-10.0)
[2020-10-23 07:22] LABS: BLOOD UREA NITROGEN 18 MG/DL (7-18); CALCIUM LEVEL 7.6 MG/DL (8.8-10.2); CARBON DIOXIDE LEVEL 25 MEQ/L (21-32); CHLORIDE LEVEL 110 MEQ/L (98-107); CREATININE FOR GFR 0.81 MG/DL (0.70-1.30); GLOMERULAR FILTRATION RATE > 60.0 (>49); GLUCOSE, FASTING 104 MG/DL (70-100); MAGNESIUM LEVEL 1.9 MG/DL (1.8-2.4); POTASSIUM SERUM 3.4 MEQ/L (3.5-5.1); SODIUM LEVEL 142 MEQ/L (136-145)
[2020-10-23] MEDS: LIDOCAINE 5% (LIDODERM) PATCH TD SCH (08:33)
[2020-10-23] MEDS: VORICONAZOLE 200MG TABLET (VFEND) PO SCH (08:33)
[2020-10-23] MEDS: LORATADINE 10 MG TAB PO SCH (08:33)
[2020-10-23] MEDS: cefTRIAXone SOD 1 GM in D5W MINI-BAG PLUS 50 ML IV SCH (08:33)
[2020-10-23] MEDS: CARVedilol 3.125 MG TAB PO SCH ×2 (08:33→08:42)
[2020-10-23] MEDS: valACYclovir HCL 500 MG TAB PO SCH (08:33)
[2020-10-23] MEDS: NORCO, ANEXSIA 5/325MG TABLET (HYDROcodone/ACETAMINOPHEN) PO PRN (08:41)
[2020-10-23] MEDS ORDERED: HYDR-3715 PO (11:08)
[2020-10-23] MEDS ORDERED: DOXY-350 PO (11:08)
[2020-10-23] MEDS ORDERED: ELIQ5TAB PO (11:08)
[2020-10-23] MEDS ORDERED: APIXABAN 5 MG TAB (ELIQUIS) PO SCH (11:15)
--- NOTE | 2020-10-23 19:17 | DS.PDOC ---
Discharge Summary General Date of Admission Oct 20, 2020 at 08:43 Date of Discharge October 23, 2020 Discharge Summary PRIMARY CARE PHYSICIAN: Dr. Vick ATTENDING AT TIME OF DISCHARGE: Dr. Parish Gavin DO DISCHARGE DIAGNOS(E)S: Acute, unprovoked right lower lobe pulmonary embolus Intractable pleuritic pain AML Acute anemia Right upper and lower lobe pneumonia Paroxysmal atrial fibrillation Hyperlipidemia Insomnia HPI & HOSPITAL COURSE: Patient presented to the emergency department with intractable right-sided pleuritic pain. Prior to that he had been hospitalized for 39 days for AML, and was only discharged from that facility 3 weeks prior to his admission here. Upon admission a CT angio of the chest demonstrated a pulmonary embolism in the right lower lobe which correlates with the location of his pain. He was treated with therapeutic Lovenox, but then subsequently his H&H began to drop from 9.0 to 7.5 to 6.2 over the next few days. His Lovenox was discontinued, he was given 2 units of blood. Repeat CT angio of the chest, abdomen, pelvis did not demonstrate any areas of extravasation. He was found to have an area of increased density within the bladder which on imaging may have been hemorrhagic, however urinalysis only showed 1+ blood, which certainly would not account for t he loss of 3 units of blood on his H&H. After blood transfusion of 2 units his H&H improved back to 9.1, and he was put on heparin, and remained his H&H remained stable over the following 36 hours, his hemoglobin this morning was 8.9. Therefore, it appears that his bleeding is stopped. CT scan did also indicate a right-sided pneumonia which also could account for or at least contribute to his pleuritic pain, therefore he was treated with ceftriaxone and azithromycin which was started on October 21, 2020, and then he will be transitioned over to doxycycline 100 mg p.o. twice daily upon discharge. Also, during this time his right-sided pleuritic chest pain has also subsided. Will initiate him on Eliquis which he should take 10 mg twice daily for the next 10 days, and then transition to 5 mg twice daily thereafter. He will likely need to be on anticoagulation for life given his hypercoagulable state and unprovoked pulmonary embolus. He does appear to be stable and ready for discharge at this time. 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 PHYSICAL EXAMINATION ON DISCHARGE: GENERAL: Awake, alert, oriented x3. He is in no acute distress. CARDIOVASCULAR EXAMINATION: Regular rate and rhythm, with no rubs, gallops, or murmur. RESPIRATORY EXAMINATION: Clear to auscultation bilaterally with no wheezes, rales, or rhonchi. ABDOMINAL EXAMINATION: Soft, nontender, nondistended. Bowel sounds present. EXTREMITIES: No clubbing or edema noted. 2+ pulses in the radial bilaterally. DISPOSITION: Home DISCHARGE INSTRUCTIONS: Follow-up with pipe stripper/oncologist who is also currently acting as his PCP within the next 7-10 days. Activity as tolerated. Diet as tolerated. If symptoms return, or if you experience worsening of your symptoms, please call your doctor or return to the emergency department. Vital Signs/I&Os Vital Signs Date Time Temp Pulse Resp B/P (MAP) Pulse Ox O2 Delivery O2 Flow Rate FiO2 10/23/20 09:11 18 10/23/20 06:00 98.2 64 107/68 (81) 94 Room Air 10/23/20 02:52 1.0 I&O- Last 24 Hours up to 6 AM 10/23/20 06:00 Intake Total 480 ml Output Total 320 ml Balance 160 ml Laboratory Data Labs 24H Laboratory Tests 2 10/23/20 06:47: Nucleated Red Blood Cells % (auto) 0.0, Anion Gap 7L, Glomerular Filtration Rate > 60.0, Calcium Level 7.6L, Magnesium Level 1.9 CBC/BMP Laboratory Tests 10/22/20 21:53 10/23/20 06:47 Discharge Medications Scheduled Apixaban (Eliquis) 5 Mg Tablet, 10 MG PO BID Carvedilol (Carvedilol) 3.125 Mg Tablet, 3.125 MG PO BID, (Reported) Doxycycline Monohydrate (Doxycycline) 100 Mg Capsule, 100 MG PO BID Loratadine (Loratadine) 10 Mg Tablet, 10 MG PO DAILY, (Reported) Magnesium (Magnesium) 250 Mg Tablet, 250 MG PO TID, (Reported) Melatonin (Melatonin) 3 Mg Tablet, 3 MG PO QHS, (Reported) Rosuvastatin Calcium (Rosuvastatin Calcium) 20 Mg Tablet, 20 MG PO QHS, (Reported) Valacyclovir HCl (Valacyclovir) 500 Mg Tablet, 500 MG PO DAILY, (Reported) Voriconazole (Voriconazole) 200 Mg Tablet, 200 MG PO BID, (Reported) Scheduled PRN Acetaminophen (Acetaminophen) 500 Mg Tablet, 1,000 MG PO Q6H PRN for PAIN LEVEL 1-5, (Reported) Hydrocodone/Acetaminophen (Hydrocodone-Acetamin 5-325 mg) 1 Each Tablet, 1 TAB PO Q4HP PRN for MODERATE PAIN (PS 5-7) Ondansetron (Ondansetron Odt) 8 Mg Tab.rapdis, 8 MG PO TID PRN for NAUSEA OR VOMITING, (Reported) Allergies Coded Allergies: No Known Allergies (Verified Allergy, Unknown, 08/23/20) PARISH GAVIN DO Oct 23, 2020 19:17
[2020-10-26] MEDS ORDERED: ELIQ5TAB PO (10:50)
== END 2020-10-23 14:30 | disposition home or self-care (01) | DRG 175 ==
LOC: M ED 21:59 → M ED INP 10-20 08:43 → M PCU 10-20 13:30 → M MS5PR 10-22 16:38
PROVIDERS: ADMIT Internal Medicine; ATTEND Internal Medicine
DX: I26.99 Other pulmonary embolism without acute cor pulmonale (principal); J18.9 Pneumonia, unspecified organism; C92.00 Acute myeloblastic leukemia, not having achieved remission; I48.0 Paroxysmal atrial fibrillation; D64.9 Anemia, unspecified; E78.5 Hyperlipidemia, unspecified; G47.00 Insomnia, unspecified; Z79.899 Other long term (current) drug therapy

== ENCOUNTER → 2021-03-23 | Outpatient (REF) | payer MEDICARE ==
[~2021-03-23] MED LIST changes: +ACET500T15 PO; +CARV6.25 PO; +DOXY-350 PO; +ELIQ5TAB PO; +HYDR-3715 PO; +MAGN250T7 PO; +MELA3TAB30 PO; +ONDA-84 PO; -ONDA8TAB10 PO; +ONDA8TAB8 PO; +PRED20TA PO; +ROSU20TA5 PO; +VALT500T PO; +VITMTA PO
== END ==
LOC: M LAB REF 16:18
PROVIDERS: ATTEND Internal Medicine
DX: A87.9 Viral meningitis, unspecified (principal); R53.83 Other fatigue

== ENCOUNTER 2021-06-11 11:41 | Inpatient (IN) | payer MEDICARE ==
[~2021-06-11] VITALS: Ht 188 cm; Wt 90.5 kg
[2021-06-11] MEDS ORDERED: VALA500T5 PO ×2 (12:16→15:00)
[2021-06-11] MEDS ORDERED: NS 2,750 ML in IV 1 EA IV ONE (12:30)
[2021-06-11] MEDS ORDERED: ACETAMINOPHEN TAB 650MG DOSE (2X325MG) PO ONE (12:30)
[2021-06-11] MEDS ORDERED: LevoFLOXacin IV 750 MG in IV 1 EA IV ONE (12:35)
[2021-06-11 13:29] LABS: HEMATOCRIT 32.6 % (42.0-52.0); HEMOGLOBIN 11.8 g/dl (13.5-17.5); MEAN CORPUSCULAR HEMOGLOBIN 38.6 pg (27.0-33.0); MEAN CORPUSCULAR HGB CONC 36.2 g/dl (32.0-36.5); MEAN CORPUSCULAR VOLUME 106.5 fl (80.0-96.0); PLATELET COUNT, AUTOMATED 260 10^3/uL (150-450); RED BLOOD COUNT 3.06 10^6/uL (4.30-6.10); WHITE BLOOD COUNT 8.4 10^3/uL (4.0-10.0)
[2021-06-11 13:39] LABS: INR 1.5; PROTHROMBIN TIME 18.5 SECONDS (12.7-14.5)
[2021-06-11 13:40] LABS: PARTIAL THROMBOPLASTIN TIME 49.5 SECONDS (25.9-37.0)
[2021-06-11 13:49] LABS: ATYPICAL LYMPH 3 % (0-5); LYMPHOCYTES 16 % (16-44); MONOCYTES 14 % (0-5); NEUTROPHILS 56 % (28-66)
[2021-06-11 13:51] LABS: OVALOCYTES 1+; PLATELET ESTIMATE NORMAL (NORMAL); TEAR DROP CELLS 1+
[2021-06-11 14:10] LABS: BLOOD UREA NITROGEN 14 MG/DL (7-18); CALCIUM LEVEL 8.4 MG/DL (8.8-10.2); CARBON DIOXIDE LEVEL 23 MEQ/L (21-32); CHLORIDE LEVEL 105 MEQ/L (98-107); CREATININE FOR GFR 1.05 MG/DL (0.70-1.30); GLOMERULAR FILTRATION RATE > 60.0 (>49); GLUCOSE, FASTING 112 MG/DL (70-100); POTASSIUM SERUM 3.9 MEQ/L (3.5-5.1); SODIUM LEVEL 136 MEQ/L (136-145)
[2021-06-11 14:11] LABS: ALBUMIN 2.4 GM/DL (3.2-5.2); ALT/SGPT 48 U/L (12-78); AMYLASE 30 U/L (25-115); BILIRUBIN,DIRECT 0.3 MG/DL (0.0-0.2); BILIRUBIN,TOTAL 0.8 MG/DL (0.2-1.0); TOTAL PROTEIN 5.8 GM/DL (6.4-8.2)
[2021-06-11] MEDS ORDERED: ESSE250T PO (15:00)
[2021-06-11] MEDS ORDERED: ONDA8TAB8 PO (15:00)
[2021-06-11] MEDS ORDERED: LORA-674 PO (15:00)
[2021-06-11] MEDS ORDERED: CARV6.25 PO (15:00)
[2021-06-11] MEDS ORDERED: ELIQ5TAB PO (15:00)
[2021-06-11] MEDS ORDERED: ROSU20TA5 PO (15:00)
[2021-06-11] MEDS ORDERED: FAMO20TA5 PO (15:39)
[2021-06-11] MEDS ORDERED: HOME MED LIST COMPLETE! XX SCH (15:40)
[2021-06-11 16:14] LABS: APPEARANCE, URINE HAZY (CLEAR); BACTERIA, URINE AUTO NEGATIVE (NEGATIVE); BILIRUBIN, URINE AUTO NEGATIVE (NEGATIVE); BLOOD, URINE BLOOD NEGATIVE (NEGATIVE); COLOR, URINE YELLOW (YELLOW); GLUCOSE, URINE (UA) AUTO NEGATIVE (NEGATIVE); KETONE, URINE AUTO NEGATIVE (NEGATIVE); LEUKOCYTE ESTERASE, URINE AUTO NEGATIVE (NEGATIVE); NITRITE, URINE AUTO NEGATIVE (NEGATIVE); PROTEIN, URINE AUTO 1+ mg/dL (NEGATIVE); RBC, URINE AUTO 1 /HPF (0-3); SPECIFIC GRAVITY URINE AUTO 1.009 (1.002-1.035); SQUAMOUS EPITHELIAL CELL UR AU 0 /HPF (0-6); UROBILINOGEN, URINE AUTO 0.2 mg/dL (0.0-2.0); WBC, URINE AUTO 0 /HPF (0-3)
[2021-06-11] MEDS: PIPERACILLIN/TAZOBACTAM SOD 3.375 GM in D5W MINI-BAG PLUS 50 ML IV SCH ×2 (17:18→23:41)
[2021-06-11] MEDS: NS 1,000 ML IV SCH (18:28)
[2021-06-11] MEDS: VANCOMYCIN HCL 1,000 MG, VIAL MATE ADAPTER 1 EACH in NS 250 ML IV SCH (18:29)
[2021-06-11] MEDS ORDERED: VANCOMYCIN HCL 1,000 MG, VIAL MATE ADAPTER 1 EACH in NS 250 ML IV ONE (19:00)
[2021-06-11 20:00] VITALS: BP 109/73
[2021-06-11] MEDS: ROSUVASTATIN 10 MG TAB (CRESTOR) PO SCH (20:04)
[2021-06-11] MEDS: APIXABAN 5 MG TAB (ELIQUIS) PO SCH (20:04)
[2021-06-11 23:38] VITALS: BP 115/72
[2021-06-11] MEDS: ACETAMINOPHEN TAB 650MG DOSE (2X325MG) PO PRN (23:41)
[2021-06-12 04:00] VITALS: BP 111/75
[2021-06-12] MEDS: PIPERACILLIN/TAZOBACTAM SOD 3.375 GM in D5W MINI-BAG PLUS 50 ML IV SCH ×4 (05:00→22:54)
[2021-06-12 05:37] LABS: HEMATOCRIT 33.1 % (42.0-52.0); HEMOGLOBIN 11.3 g/dl (13.5-17.5); MEAN CORPUSCULAR HEMOGLOBIN 38.3 pg (27.0-33.0); MEAN CORPUSCULAR HGB CONC 34.1 g/dl (32.0-36.5); MEAN CORPUSCULAR VOLUME 112.2 fl (80.0-96.0); PLATELET COUNT, AUTOMATED 197 10^3/uL (150-450); RED BLOOD COUNT 2.95 10^6/uL (4.30-6.10); WHITE BLOOD COUNT 7.9 10^3/uL (4.0-10.0)
[2021-06-12 05:59] LABS: BLOOD UREA NITROGEN 15 MG/DL (7-18); CALCIUM LEVEL 8.6 MG/DL (8.8-10.2); CARBON DIOXIDE LEVEL 20 MEQ/L (21-32); CHLORIDE LEVEL 108 MEQ/L (98-107); GLOMERULAR FILTRATION RATE > 60.0 (>49); GLUCOSE, FASTING 102 MG/DL (70-100); POTASSIUM SERUM 3.7 MEQ/L (3.5-5.1); SODIUM LEVEL 138 MEQ/L (136-145)
[2021-06-12 06:04] LABS: ANISOCYTOSIS 1+; ATYPICAL LYMPH 5 % (0-5); LYMPHOCYTES 21 % (16-44); MONOCYTES 6 % (0-5); NEUTROPHILS 68 % (28-66); PLATELET ESTIMATE NORMAL (NORMAL); POIKILOCYTOSIS 1+; POLYCHROMASIA 1+
[2021-06-12] MEDS: VANCOMYCIN HCL 1,000 MG, VIAL MATE ADAPTER 1 EACH in NS 250 ML IV SCH ×2 (06:13→18:14)
[2021-06-12] MEDS: NS 1,000 ML IV SCH (07:00)
[2021-06-12 08:00] VITALS: BP 112/80
[2021-06-12] MEDS: APIXABAN 5 MG TAB (ELIQUIS) PO SCH ×2 (08:10→20:16)
[2021-06-12] MEDS: LORATADINE 10 MG TAB PO SCH (08:10)
[2021-06-12] MEDS: valACYclovir HCL 500 MG TAB PO SCH (08:10)
[2021-06-12] MEDS: FAMOTIDINE 20 MG TAB PO SCH (08:10)
[2021-06-12] MEDS: CARVedilol 6.25 MG TAB PO SCH ×2 (10:59→20:16)
[2021-06-12 12:00] VITALS: BP 98/62
[2021-06-12 16:00] VITALS: BP 99/63
[2021-06-12] MEDS: ACETAMINOPHEN TAB 650MG DOSE (2X325MG) PO PRN (17:23)
[2021-06-12] MEDS ORDERED: NS 1,000 ML IV ONE (17:45)
[2021-06-12 20:00] VITALS: BP 96/58
[2021-06-12] MEDS: ROSUVASTATIN 10 MG TAB (CRESTOR) PO SCH (20:16)
[2021-06-13] VITALS: BP 115/71
[2021-06-13 04:00] VITALS: BP 117/71
[2021-06-13] MEDS: PIPERACILLIN/TAZOBACTAM SOD 3.375 GM in D5W MINI-BAG PLUS 50 ML IV SCH ×4 (04:48→23:00)
[2021-06-13] MEDS: ACETAMINOPHEN TAB 650MG DOSE (2X325MG) PO PRN (04:57)
[2021-06-13 05:33] LABS: BASO % 0.3 % (0.0-1.0); EOS % 0.5 % (0.0-3.0); HEMATOCRIT 30.4 % (42.0-52.0); HEMOGLOBIN 10.4 g/dl (13.5-17.5); LYMPH # 1.5 10^3/uL (1.5-5.0); LYMPH % 26.3 % (24.0-44.0); MEAN CORPUSCULAR HEMOGLOBIN 36.9 pg (27.0-33.0); MEAN CORPUSCULAR HGB CONC 34.2 g/dl (32.0-36.5); MEAN CORPUSCULAR VOLUME 107.8 fl (80.0-96.0); MONO # 0.7 10^3/uL (0.0-0.8); MONO % 12.7 % (2.0-8.0); NEUTROPHILS # 3.4 10^3/uL (1.5-8.5); NEUTROPHILS % 58.1 % (36.0-66.0); PLATELET COUNT, AUTOMATED 197 10^3/uL (150-450); RED BLOOD COUNT 2.82 10^6/uL (4.30-6.10); WHITE BLOOD COUNT 5.8 10^3/uL (4.0-10.0)
[2021-06-13 05:56] LABS: BLOOD UREA NITROGEN 13 MG/DL (7-18); CALCIUM LEVEL 8.1 MG/DL (8.8-10.2); CARBON DIOXIDE LEVEL 24 MEQ/L (21-32); CHLORIDE LEVEL 111 MEQ/L (98-107); CREATININE FOR GFR 0.99 MG/DL (0.70-1.30); GLOMERULAR FILTRATION RATE > 60.0 (>49); GLUCOSE, FASTING 95 MG/DL (70-100); POTASSIUM SERUM 3.4 MEQ/L (3.5-5.1); SODIUM LEVEL 142 MEQ/L (136-145)
[2021-06-13] MEDS: VANCOMYCIN HCL 750 MG, VIAL MATE ADAPTER 1 EACH in NS 250 ML IV SCH ×2 (06:05→18:04)
[2021-06-13] MEDS ORDERED: POTASSIUM CHLORIDE 10MEQ SR TABLET PO ONE (07:00)
[2021-06-13] MEDS: APIXABAN 5 MG TAB (ELIQUIS) PO SCH ×2 (07:58→21:38)
[2021-06-13 07:59] VITALS: BP 113/77
[2021-06-13] MEDS: LORATADINE 10 MG TAB PO SCH (07:59)
[2021-06-13] MEDS: CARVedilol 6.25 MG TAB PO SCH ×2 (07:59→21:38)
[2021-06-13] MEDS: FAMOTIDINE 20 MG TAB PO SCH (08:00)
[2021-06-13] MEDS: valACYclovir HCL 500 MG TAB PO SCH (08:00)
[2021-06-13 16:42] VITALS: BP 123/79
[2021-06-13 20:00] VITALS: BP 116/72
[2021-06-13] MEDS: ROSUVASTATIN 10 MG TAB (CRESTOR) PO SCH (21:38)
[2021-06-14] VITALS: BP 119/70
[2021-06-14 04:00] VITALS: BP 117/78
[2021-06-14] MEDS: PIPERACILLIN/TAZOBACTAM SOD 3.375 GM in D5W MINI-BAG PLUS 50 ML IV SCH ×4 (05:25→22:37)
[2021-06-14] MEDS: VANCOMYCIN HCL 750 MG, VIAL MATE ADAPTER 1 EACH in NS 250 ML IV SCH (06:19)
[2021-06-14 06:25] LABS: BASO % 0.7 % (0.0-1.0); EOS # 0.1 10^3/uL (0.0-0.5); EOS % 1.3 % (0.0-3.0); HEMATOCRIT 30.7 % (42.0-52.0); HEMOGLOBIN 10.5 g/dl (13.5-17.5); LYMPH # 1.5 10^3/uL (1.5-5.0); LYMPH % 32.3 % (24.0-44.0); MEAN CORPUSCULAR HEMOGLOBIN 37.2 pg (27.0-33.0); MEAN CORPUSCULAR HGB CONC 34.2 g/dl (32.0-36.5); MEAN CORPUSCULAR VOLUME 108.9 fl (80.0-96.0); MONO # 0.5 10^3/uL (0.0-0.8); MONO % 11.7 % (2.0-8.0); NEUTROPHILS # 2.4 10^3/uL (1.5-8.5); NEUTROPHILS % 52.5 % (36.0-66.0); PLATELET COUNT, AUTOMATED 201 10^3/uL (150-450); RED BLOOD COUNT 2.82 10^6/uL (4.30-6.10); WHITE BLOOD COUNT 4.6 10^3/uL (4.0-10.0)
[2021-06-14 06:54] LABS: BLOOD UREA NITROGEN 10 MG/DL (7-18); CALCIUM LEVEL 8.4 MG/DL (8.8-10.2); CARBON DIOXIDE LEVEL 23 MEQ/L (21-32); CHLORIDE LEVEL 111 MEQ/L (98-107); CREATININE FOR GFR 0.99 MG/DL (0.70-1.30); GLOMERULAR FILTRATION RATE > 60.0 (>49); GLUCOSE, FASTING 102 MG/DL (70-100); POTASSIUM SERUM 3.6 MEQ/L (3.5-5.1); SODIUM LEVEL 141 MEQ/L (136-145)
[2021-06-14] MEDS: LORATADINE 10 MG TAB PO SCH (08:10)
[2021-06-14] MEDS: APIXABAN 5 MG TAB (ELIQUIS) PO SCH ×2 (08:10→20:23)
[2021-06-14] MEDS: CARVedilol 6.25 MG TAB PO SCH ×2 (08:11→20:22)
[2021-06-14] MEDS: valACYclovir HCL 500 MG TAB PO SCH (08:11)
[2021-06-14] MEDS: FAMOTIDINE 20 MG TAB PO SCH (08:11)
[2021-06-14] MEDS: ACETAMINOPHEN TAB 650MG DOSE (2X325MG) PO PRN (10:30)
[2021-06-14 11:25] VITALS: BP 107/71
[2021-06-14 15:36] VITALS: BP 109/77
[2021-06-14 19:29] VITALS: BP 124/84
[2021-06-14] MEDS: ROSUVASTATIN 10 MG TAB (CRESTOR) PO SCH (20:22)
[2021-06-15 03:45] VITALS: BP 112/74
[2021-06-15] MEDS: PIPERACILLIN/TAZOBACTAM SOD 3.375 GM in D5W MINI-BAG PLUS 50 ML IV SCH (04:51)
[2021-06-15 05:41] LABS: BASO % 0.7 % (0.0-1.0); EOS # 0.1 10^3/uL (0.0-0.5); EOS % 1.5 % (0.0-3.0); HEMATOCRIT 32.6 % (42.0-52.0); HEMOGLOBIN 11.1 g/dl (13.5-17.5); LYMPH # 1.6 10^3/uL (1.5-5.0); LYMPH % 26.7 % (24.0-44.0); MEAN CORPUSCULAR HEMOGLOBIN 37.2 pg (27.0-33.0); MEAN CORPUSCULAR VOLUME 109.4 fl (80.0-96.0); MONO # 0.6 10^3/uL (0.0-0.8); MONO % 10.3 % (2.0-8.0); NEUTROPHILS # 3.5 10^3/uL (1.5-8.5); NEUTROPHILS % 59.3 % (36.0-66.0); PLATELET COUNT, AUTOMATED 210 10^3/uL (150-450); RED BLOOD COUNT 2.98 10^6/uL (4.30-6.10); WHITE BLOOD COUNT 5.8 10^3/uL (4.0-10.0)
[2021-06-15 06:06] LABS: BLOOD UREA NITROGEN 9 MG/DL (7-18); CALCIUM LEVEL 8.7 MG/DL (8.8-10.2); CARBON DIOXIDE LEVEL 23 MEQ/L (21-32); CHLORIDE LEVEL 111 MEQ/L (98-107); CREATININE FOR GFR 0.89 MG/DL (0.70-1.30); GLOMERULAR FILTRATION RATE > 60.0 (>49); GLUCOSE, FASTING 96 MG/DL (70-100); SODIUM LEVEL 140 MEQ/L (136-145)
[2021-06-15] MEDS ORDERED: LevoFLOXacin 750 MG TABLET PO ONE (07:45)
[2021-06-15] MEDS ORDERED: LEVO750T13 PO (07:50)
[2021-06-15 08:00] VITALS: BP 107/78
[2021-06-15 08:13] VITALS: BP 107/78
[2021-06-15] MEDS: CARVedilol 6.25 MG TAB PO SCH (08:13)
[2021-06-15] MEDS: FAMOTIDINE 20 MG TAB PO SCH (08:16)
[2021-06-15] MEDS: APIXABAN 5 MG TAB (ELIQUIS) PO SCH (08:16)
[2021-06-15] MEDS: LORATADINE 10 MG TAB PO SCH (08:16)
[2021-06-15] MEDS: valACYclovir HCL 500 MG TAB PO SCH (08:16)
[2021-06-15] MEDS ORDERED: AUGMENTIN 875 MG TAB PO SCH (09:00)
== END 2021-06-15 11:20 | disposition home or self-care (01) | DRG 871 ==
LOC: M ED 11:41 → M ED INP 14:28 → ENRESERV 16:29 → M PCU 18:44
PROVIDERS: ADMIT Internal Medicine Nephrology; ATTEND Family Medicine
DX: A41.9 Sepsis, unspecified organism (principal); J18.9 Pneumonia, unspecified organism; C92.01 Acute myeloblastic leukemia, in remission; E78.5 Hyperlipidemia, unspecified; I48.91 Unspecified atrial fibrillation; Z94.6 Bone transplant status; I10 Essential (primary) hypertension; Z92.21 Personal history of antineoplastic chemotherapy; Z79.899 Other long term (current) drug therapy

== ENCOUNTER 2021-07-25 10:28 | Emergency (ER) | payer MEDICARE ==
[~2021-07-25] VITALS: Ht 188 cm; Wt 92.4 kg
[~2021-07-25 10:28] MED LIST changes: +ESSE250T PO; +FAMO20TA5 PO; +LEVO750T13 PO
[2021-07-25 12:45] VITALS: BP 113/87
== END 2021-07-25 12:50 | disposition home or self-care (01) ==
LOC: M ED 10:28
DX: S39.012A Strain of muscle, fascia and tendon of lower back, initial encounter (principal); S20.211A Contusion of right front wall of thorax, initial encounter; W01.0XXA Fall on same level from slipping, tripping and stumbling without subsequent striking against object, initial encounter; Y92.89 Other specified places as the place of occurrence of the external cause; Y93.89 Activity, other specified; Y99.9 Unspecified external cause status; M51.36 Other intervertebral disc degeneration, lumbar region; I48.91 Unspecified atrial fibrillation; E78.5 Hyperlipidemia, unspecified; K21.9 Gastro-esophageal reflux disease without esophagitis; Z85.6 Personal history of leukemia; Z87.442 Personal history of urinary calculi; F12.10 Cannabis abuse, uncomplicated; Z79.01 Long term (current) use of anticoagulants; Z79.899 Other long term (current) drug therapy

== ENCOUNTER → 2021-12-08 | Outpatient (CLI) | payer MEDICARE ==
[~2021-12-08] MED LIST changes: +AMOX875T; +GASTROGRAFIN SOLUTION 30ML (Q9963) As Ordered ONE; +LEVO1TAB40 PO; -LEVO750T13 PO
== END ==
LOC: M RAD 09:18
PROVIDERS: ATTEND Internal Medicine
DX: R10.814 Left lower quadrant abdominal tenderness (principal); R91.8 Other nonspecific abnormal finding of lung field; J90 Pleural effusion, not elsewhere classified
CPT/HCPCS: 74176; Q9963

== ENCOUNTER → 2021-12-12 | Outpatient (CLI) | payer MEDICARE ==
[~2021-12-12] MED LIST changes: -GASTROGRAFIN SOLUTION 30ML (Q9963) As Ordered ONE
== END ==
LOC: M ADAMS 10:08
PROVIDERS: ATTEND Internal Medicine
DX: R07.1 Chest pain on breathing (principal); J44.9 Chronic obstructive pulmonary disease, unspecified; J90 Pleural effusion, not elsewhere classified

== ENCOUNTER → 2021-12-21 | Outpatient (CLI) | payer MEDICARE ==
[~2021-12-21] MED LIST changes: +ISOVUE-370 76% 100ML VIAL As Ordered ONE
== END ==
LOC: M RAD 15:25
PROVIDERS: ATTEND Internal Medicine
DX: R91.8 Other nonspecific abnormal finding of lung field (principal); J90 Pleural effusion, not elsewhere classified; R07.9 Chest pain, unspecified; R06.00 Dyspnea, unspecified; D35.02 Benign neoplasm of left adrenal gland
CPT/HCPCS: 71275; Q9967

== ENCOUNTER 2022-01-18 14:31 | Outpatient (CLI) | payer MEDICARE ==
[~2022-01-18] VITALS: Ht 182.9 cm; Wt 90.5 kg
[~2022-01-18 14:31] MED LIST changes: +CIPR500T39 PO; -DOXY-350 PO; +DOXY-444 PO; -ISOVUE-370 76% 100ML VIAL As Ordered ONE
[2022-01-18 14:35] VITALS: BP 107/82
[2022-01-18] MEDS ORDERED: ACETAMINOPHEN TAB 650MG DOSE (2X325MG) PO ONE (15:05)
[2022-01-18] MEDS ORDERED: diphenhydrAMINE 25MG CAP PO ONE (15:05)
[2022-01-18 15:25] VITALS: BP 121/74
[2022-01-18 16:45] VITALS: BP 131/86
== END 2022-01-18 17:00 ==
LOC: M INFU 14:31
PROVIDERS: ATTEND Specialist
DX: C92.01 Acute myeloblastic leukemia, in remission (principal)

== ENCOUNTER 2022-01-20 12:13 | Inpatient (IN) | payer MEDICARE ==
[~2022-01-20] VITALS: Ht 190.5 cm; Wt 89.3 kg
[2022-01-20 13:18] LABS: VENOUS HCO3 27.1 MEQ/L (23.0-27.0); VENOUS O2 SATURATION 66.3 % (60.0-80.0); VENOUS PARTIAL PRESSURE CO2 44.3 mmHg (38.0-50.0); VENOUS PARTIAL PRESSURE O2 33.8 mmHg (30.0-50.0); VENOUS PH 7.405 UNITS (7.330-7.430); VENOUS STANDARD HCO3 25.6 MEQ/L; VENOUS TOTAL CO2 28.5 MEQ/L (24.0-28.0)
[2022-01-20 13:19] LABS: APPEARANCE, URINE MANUAL CLEAR (CLEAR); COLOR, URINE MANUAL YELLOW (YELLOW)
[2022-01-20 13:20] LABS: BILIRUBIN, URINE MANUAL NEGATIVE (NEGATIVE); BLOOD URINE MANUAL TRACE (NEGATIVE); GLUCOSE, URINE (UA) MANUAL NEGATIVE (NEGATIVE); KETONE, URINE MANUAL NEGATIVE (NEGATIVE); LEUKOCYTE ESTERASE, URINE MAN NEGATIVE (NEGATIVE); NITRITE, URINE MANUAL NEGATIVE (NEGATIVE); PROTEIN, URINE MANUAL NEGATIVE (NEGATIVE); UROBILINOGEN, URINE MANUAL NORMAL (NORMAL)
[2022-01-20 13:27] LABS: BACTERIA, URINE NONE SEEN; HYALINE CAST, URINE NONE SEEN /lpf (0-1); INR 1.18; MUCUS, URINE SMALL AMOUNT (NEGATIVE); PROTHROMBIN TIME 15.3 SECONDS (12.5-14.5); RBC, URINE 0-1 /hpf (0-3); SQUAMOUS EPITHELIAL CELL URINE NONE SEEN /hpf (SMALL AMT); WBC, URINE 0-1 /hpf (0-3)
[2022-01-20 13:28] LABS: PARTIAL THROMBOPLASTIN TIME 37.6 SECONDS (24.8-34.2)
[2022-01-20 14:24] LABS: ALBUMIN 3.4 G/DL (3.2-5.2); ALT/SGPT 20 U/L (7.0-40); AMYLASE 58 U/L (30-118); BILIRUBIN,DIRECT 0.2 MG/DL (<0.4); BILIRUBIN,TOTAL 0.6 MG/DL (0.3-1.2); BLOOD UREA NITROGEN 21 MG/DL (9-23); CALCIUM LEVEL 8.8 MG/DL (8.3-10.6); CARBON DIOXIDE LEVEL 25 MMOL/L (20-31); CHLORIDE LEVEL 102 MMOL/L (98-107); CK-MB VALUE MASS < 1.0 NG/ML (<3.6); CPK CREATINE PHOSPHOKINASE 29 U/L (46-171); CREATININE FOR GFR 1.08 MG/DL (0.70-1.30); GLOMERULAR FILTRATION RATE > 60.0 (>49); GLUCOSE, FASTING 110 MG/DL (74-106); MB/CK RELATIVE INDEX 3.44 (< OR =4); POTASSIUM SERUM 3.8 MMOL/L (3.5-5.1); SODIUM LEVEL 135 MMOL/L (136-145)
[2022-01-20] MEDS ORDERED: ACETAMINOPHEN 500 MG TAB PO ONE (14:30)
[2022-01-20] MEDS: cefTRIAXone SOD 2 GM in D5W MINI-BAG PLUS 50 ML IV ONE ×2 (15:35→15:47)
[2022-01-20] MEDS ORDERED: VANCOMYCIN HCL 1,750 MG in NS 250 ML IV ONE (15:50)
[2022-01-20] MEDS ORDERED: VANCOMYCIN HCL 1,000 MG, VIAL MATE ADAPTER 1 EACH in D5W 250 ML IV ONE (16:00)
[2022-01-20] MEDS ORDERED: VANCOMYCIN HCL 750 MG, VIAL MATE ADAPTER 1 EACH in D5W 250 ML IV ONE (16:00)
[2022-01-20] MEDS ORDERED: NS 1,000 ML IV ONE ×2 (16:20→19:55)
[2022-01-20] MEDS ORDERED: CARV3.12 PO (16:34)
[2022-01-20] MEDS ORDERED: ROSU20TA5 PO (16:34)
[2022-01-20] MEDS ORDERED: DIFL200T PO (16:34)
[2022-01-20] MEDS ORDERED: ONDA8TAB8 PO (16:34)
[2022-01-20] MEDS ORDERED: VALT1TAB PO (16:34)
[2022-01-20] MEDS ORDERED: HOME MED LIST COMPLETE! XX SCH (16:35)
[2022-01-20] MEDS ORDERED: ONDANSETRON 4MG 2ML VIAL IV PRN (18:20)
[2022-01-20] MEDS ORDERED: IBUPROFEN 800 MG TAB PO ONE (19:55)
[2022-01-20] MEDS: MEROPENEM INJ 1 GM in IV 1 EA IV SCH (20:40)
[2022-01-20] MEDS: FILGRASTIM 480 MCG/0.8 ML SYRINGE **SC ADMINISTRATION ONLY SC SCH (21:00)
[2022-01-20] MEDS ORDERED: diphenhydrAMINE 50MG/ML VIAL IV STA (23:03)
[2022-01-20 23:32] VITALS: BP 94/64
[2022-01-20] MEDS: ROSUVASTATIN 10 MG TAB (CRESTOR) PO SCH (23:48)
[2022-01-20] MEDS: FLUCONAZOLE 100 MG TAB PO SCH (23:49)
[2022-01-20] MEDS: valACYclovir HCL 500 MG TAB PO SCH (23:49)
[2022-01-20] MEDS: PANTOPRAZOLE 40MG TAB (PROTONIX) PO SCH (23:49)
[2022-01-20 23:50] VITALS: BP 91/56
[2022-01-20] MEDS: APIXABAN 5 MG TAB (ELIQUIS) PO SCH (23:50)
[2022-01-21] MEDS ORDERED: NS 500 ML IV ONE ×3 (02:00→06:35)
[2022-01-21] MEDS: MEROPENEM INJ 1 GM in IV 1 EA IV SCH ×3 (04:45→21:42)
[2022-01-21] MEDS ORDERED: HYDROCORTISONE 100 MG/2 ML VIAL (J1720 PER 1) IV ONE (05:00)
[2022-01-21] MEDS: VANCOMYCIN HCL 1,000 MG, VIAL MATE ADAPTER 1 EACH in NS 250 ML IV SCH ×2 (05:14→16:56)
[2022-01-21 08:54] LABS: HEMATOCRIT 26.7 % (42.0-52.0); HEMOGLOBIN 9.3 g/dl (13.5-17.5); LYMPH # 0.1 10^3/uL (1.5-5.0); LYMPH % 62.5 % (24.0-44.0); MEAN CORPUSCULAR HEMOGLOBIN 35.2 pg (27.0-33.0); MEAN CORPUSCULAR HGB CONC 34.8 g/dl (32.0-36.5); MEAN CORPUSCULAR VOLUME 101.1 fl (80.0-96.0); NEUTROPHILS % 12.5 % (36.0-66.0); RED BLOOD COUNT 2.64 10^6/uL (4.30-6.10)
[2022-01-21 08:59] LABS: WHITE BLOOD COUNT 0.1 10^3/uL (4.0-10.0)
[2022-01-21 09:00] LABS: PLATELET COUNT, AUTOMATED 12 10^3/uL (150-450)
[2022-01-21] MEDS ORDERED: FILGRASTIM 480 MCG/0.8 ML SYRINGE **SC ADMINISTRATION ONLY SC SCH (09:00)
[2022-01-21 09:34] LABS: BLOOD UREA NITROGEN 15 MG/DL (9-23); CALCIUM LEVEL 7.8 MG/DL (8.3-10.6); CARBON DIOXIDE LEVEL 24 MMOL/L (20-31); CHLORIDE LEVEL 109 MMOL/L (98-107); GLOMERULAR FILTRATION RATE > 60.0 (>49); GLUCOSE, FASTING 116 MG/DL (74-106); POTASSIUM SERUM 3.9 MMOL/L (3.5-5.1); SODIUM LEVEL 142 MMOL/L (136-145)
[2022-01-21] MEDS: valACYclovir HCL 500 MG TAB PO SCH ×2 (11:38→22:36)
[2022-01-21] MEDS: APIXABAN 5 MG TAB (ELIQUIS) PO SCH (11:38)
[2022-01-21] MEDS: ACETAMINOPHEN 500 MG TAB PO PRN ×2 (11:38→22:03)
[2022-01-21] MEDS: LORATADINE 10 MG TAB PO SCH (11:39)
[2022-01-21] MEDS: FAMOTIDINE 20 MG TAB PO SCH (11:39)
[2022-01-21] MEDS: NS 1,000 ML IV SCH (13:30)
[2022-01-21 14:20] VITALS: BP 90/60
[2022-01-21] MEDS ORDERED: diphenhydrAMINE 50MG/ML VIAL IV STA (14:32)
[2022-01-21 14:39] VITALS: BP 96/67
[2022-01-21] MEDS: FLUCONAZOLE 100 MG TAB PO SCH ×2 (14:58→21:42)
[2022-01-21 15:54] VITALS: BP 95/61
[2022-01-21] MEDS ORDERED: diphenhydrAMINE 50MG/ML VIAL IV ONE (18:45)
[2022-01-21 18:49] VITALS: BP 99/62
[2022-01-21 20:24] VITALS: BP 128/72
[2022-01-21 21:00] VITALS: BP 118/69
[2022-01-21] MEDS: ROSUVASTATIN 10 MG TAB (CRESTOR) PO SCH (21:42)
[2022-01-21] MEDS: PANTOPRAZOLE 40MG TAB (PROTONIX) PO SCH (21:43)
[2022-01-21] MEDS: FILGRASTIM 480 MCG/0.8 ML SYRINGE **SC ADMINISTRATION ONLY SC SCH (22:36)
[2022-01-22] VITALS (7 sets, daily range): BP systolic 95–132; BP diastolic 57–85
[2022-01-22] MEDS: MEROPENEM INJ 1 GM in IV 1 EA IV SCH ×3 (04:37→20:39)
[2022-01-22] MEDS: NS 1,000 ML IV SCH (04:37)
[2022-01-22] MEDS: VANCOMYCIN HCL 1,000 MG, VIAL MATE ADAPTER 1 EACH in NS 250 ML IV SCH (05:21)
[2022-01-22] MEDS ORDERED: traMADol 50 MG TAB PO ONE (06:00)
[2022-01-22 06:05] LABS: HEMOGLOBIN 8.3 g/dl (13.5-17.5); LYMPH # 0.1 10^3/uL (1.5-5.0); LYMPH % 66.7 % (24.0-44.0); MEAN CORPUSCULAR HEMOGLOBIN 35.2 pg (27.0-33.0); MEAN CORPUSCULAR HGB CONC 34.6 g/dl (32.0-36.5); MEAN CORPUSCULAR VOLUME 101.7 fl (80.0-96.0); MONO # 0.1 10^3/uL (0.0-0.8); MONO % 28.6 % (2.0-8.0); NEUTROPHILS % 4.7 % (36.0-66.0); RED BLOOD COUNT 2.36 10^6/uL (4.30-6.10)
[2022-01-22 06:08] LABS: WHITE BLOOD COUNT 0.2 10^3/uL (4.0-10.0)
[2022-01-22 06:09] LABS: PLATELET COUNT, AUTOMATED 43 10^3/uL (150-450)
[2022-01-22 06:57] LABS: BLOOD UREA NITROGEN 15 MG/DL (9-23); CALCIUM LEVEL 7.5 MG/DL (8.3-10.6); CARBON DIOXIDE LEVEL 24 MMOL/L (20-31); CHLORIDE LEVEL 111 MMOL/L (98-107); CREATININE FOR GFR 0.91 MG/DL (0.70-1.30); GLOMERULAR FILTRATION RATE > 60.0 (>49); GLUCOSE, FASTING 117 MG/DL (74-106); POTASSIUM SERUM 3.4 MMOL/L (3.5-5.1); SODIUM LEVEL 144 MMOL/L (136-145)
[2022-01-22] MEDS ORDERED: POTASSIUM CHLORIDE 10MEQ SR TABLET PO ONE (08:50)
[2022-01-22] MEDS: LORATADINE 10 MG TAB PO SCH (10:39)
[2022-01-22] MEDS: FLUCONAZOLE 100 MG TAB PO SCH ×2 (10:39→20:38)
[2022-01-22] MEDS: FAMOTIDINE 20 MG TAB PO SCH (10:39)
[2022-01-22] MEDS: valACYclovir HCL 500 MG TAB PO SCH ×2 (10:39→20:38)
[2022-01-22] MEDS: ACETAMINOPHEN 500 MG TAB PO PRN ×2 (12:29→20:38)
[2022-01-22] MEDS: VANCOMYCIN HCL 750 MG, VIAL MATE ADAPTER 1 EACH in D5W 250 ML IV SCH (17:36)
[2022-01-22] MEDS: VANCOMYCIN HCL 500 MG in D5W MINI-BAG PLUS 100 ML IV SCH (18:54)
[2022-01-22] MEDS: PANTOPRAZOLE 40MG TAB (PROTONIX) PO SCH (20:39)
[2022-01-22] MEDS: ROSUVASTATIN 10 MG TAB (CRESTOR) PO SCH (20:39)
[2022-01-22] MEDS: FILGRASTIM 480 MCG/0.8 ML SYRINGE **SC ADMINISTRATION ONLY SC SCH (21:56)
[2022-01-23] VITALS (13 sets, daily range): BP systolic 82–128; BP diastolic 58–87
[2022-01-23] MEDS: MEROPENEM INJ 1 GM in IV 1 EA IV SCH ×2 (03:53→13:06)
[2022-01-23] MEDS: ACETAMINOPHEN 500 MG TAB PO PRN ×2 (04:07→13:06)
[2022-01-23] MEDS: VANCOMYCIN HCL 750 MG, VIAL MATE ADAPTER 1 EACH in D5W 250 ML IV SCH ×2 (05:54→17:14)
[2022-01-23] MEDS: traMADol 50 MG TAB PO PRN (05:55)
[2022-01-23 06:13] LABS: HEMOGLOBIN 8.6 g/dl (13.5-17.5); LYMPH # 0.2 10^3/uL (1.5-5.0); LYMPH % 36.2 % (24.0-44.0); MEAN CORPUSCULAR HEMOGLOBIN 34.7 pg (27.0-33.0); MEAN CORPUSCULAR HGB CONC 34.4 g/dl (32.0-36.5); MEAN CORPUSCULAR VOLUME 100.8 fl (80.0-96.0); MONO # 0.3 10^3/uL (0.0-0.8); MONO % 57.4 % (2.0-8.0); NEUTROPHILS % 6.4 % (36.0-66.0); RED BLOOD COUNT 2.48 10^6/uL (4.30-6.10)
[2022-01-23 06:18] LABS: PLATELET COUNT, AUTOMATED 30 10^3/uL (150-450); WHITE BLOOD COUNT 0.5 10^3/uL (4.0-10.0)
[2022-01-23] MEDS: VANCOMYCIN HCL 500 MG in D5W MINI-BAG PLUS 100 ML IV SCH ×2 (06:56→18:25)
[2022-01-23 06:59] LABS: BLOOD UREA NITROGEN 14 MG/DL (9-23); CALCIUM LEVEL 7.2 MG/DL (8.3-10.6); CARBON DIOXIDE LEVEL 24 MMOL/L (20-31); CHLORIDE LEVEL 108 MMOL/L (98-107); CREATININE FOR GFR 0.82 MG/DL (0.70-1.30); GLOMERULAR FILTRATION RATE > 60.0 (>49); GLUCOSE, FASTING 104 MG/DL (74-106); POTASSIUM SERUM 3.6 MMOL/L (3.5-5.1); SODIUM LEVEL 141 MMOL/L (136-145)
[2022-01-23] MEDS: valACYclovir HCL 500 MG TAB PO SCH ×2 (08:28→20:40)
[2022-01-23] MEDS: FAMOTIDINE 20 MG TAB PO SCH (08:28)
[2022-01-23] MEDS: FLUCONAZOLE 100 MG TAB PO SCH ×2 (08:29→20:41)
[2022-01-23] MEDS: LORATADINE 10 MG TAB PO SCH (08:29)
[2022-01-23] MEDS ORDERED: IBUPROFEN 600MG TAB PO ONE (13:55)
[2022-01-23] MEDS: METOPROLOL 5 MG/5 ML VIAL IV SCH ×4 (16:01→16:24)
[2022-01-23] MEDS ORDERED: DIGOXIN INJ 0.5 MG/2 ML AMP IV ONE (16:20)
[2022-01-23] MEDS ORDERED: NS 1,000 ML IV ONE (17:45)
[2022-01-23] MEDS ORDERED: METOPROLOL TART 12.5 MG PER 1/2 TAB PO SCH (18:00)
[2022-01-23] MEDS: ROSUVASTATIN 10 MG TAB (CRESTOR) PO SCH (20:40)
[2022-01-23] MEDS: PANTOPRAZOLE 40MG TAB (PROTONIX) PO SCH (20:41)
[2022-01-23] MEDS: FILGRASTIM 480 MCG/0.8 ML SYRINGE **SC ADMINISTRATION ONLY SC SCH (21:35)
[2022-01-23] MEDS: CIPROFLOXACIN 500MG TABLET PO SCH (21:35)
[2022-01-23] MEDS: DIGOXIN INJ 0.5 MG/2 ML AMP IV ONE ×2 (21:36→23:01)
[2022-01-24] VITALS (8 sets, daily range): BP systolic 82–124; BP diastolic 57–76
[2022-01-24] MEDS: ACYCLOVIR 1,000 MG in D5W 250 ML IV SCH ×2 (00:13→11:43)
[2022-01-24] MEDS: ACETAMINOPHEN 500 MG TAB PO PRN ×3 (00:54→13:53)
[2022-01-24 04:09] LABS: HEMATOCRIT 24.7 % (42.0-52.0); HEMOGLOBIN 8.6 g/dl (13.5-17.5); LYMPH # 0.1 10^3/uL (1.5-5.0); LYMPH % 13.6 % (24.0-44.0); MEAN CORPUSCULAR HEMOGLOBIN 34.5 pg (27.0-33.0); MEAN CORPUSCULAR HGB CONC 34.8 g/dl (32.0-36.5); MEAN CORPUSCULAR VOLUME 99.2 fl (80.0-96.0); MONO # 0.5 10^3/uL (0.0-0.8); MONO % 66.7 % (2.0-8.0); NEUTROPHILS % 11.1 % (36.0-66.0); RED BLOOD COUNT 2.49 10^6/uL (4.30-6.10)
[2022-01-24 04:12] LABS: NEUTROPHILS # 0.1 10^3/uL (1.5-8.5); PLATELET COUNT, AUTOMATED 16 10^3/uL (150-450); WHITE BLOOD COUNT 0.8 10^3/uL (4.0-10.0)
[2022-01-24 04:33] LABS: BLOOD UREA NITROGEN 16 MG/DL (9-23); CALCIUM LEVEL 6.9 MG/DL (8.3-10.6); CARBON DIOXIDE LEVEL 24 MMOL/L (20-31); CHLORIDE LEVEL 107 MMOL/L (98-107); CREATININE FOR GFR 0.86 MG/DL (0.70-1.30); GLOMERULAR FILTRATION RATE > 60.0 (>49); GLUCOSE, FASTING 112 MG/DL (74-106); POTASSIUM SERUM 3.6 MMOL/L (3.5-5.1); SODIUM LEVEL 139 MMOL/L (136-145)
[2022-01-24] MEDS: VANCOMYCIN HCL 750 MG, VIAL MATE ADAPTER 1 EACH in D5W 250 ML IV SCH ×2 (04:57→17:21)
[2022-01-24] MEDS: CIPROFLOXACIN 500MG TABLET PO SCH ×2 (05:45→17:20)
[2022-01-24] MEDS: traMADol 50 MG TAB PO PRN ×2 (05:45→17:21)
[2022-01-24] MEDS: VANCOMYCIN HCL 500 MG in D5W MINI-BAG PLUS 100 ML IV SCH ×2 (06:12→18:49)
[2022-01-24 07:45] LABS: INR 1.1; PROTHROMBIN TIME 14.5 SECONDS (12.5-14.5)
[2022-01-24 07:46] LABS: INR 1.11; PARTIAL THROMBOPLASTIN TIME 44.4 SECONDS (24.8-34.2); PROTHROMBIN TIME 14.6 SECONDS (12.5-14.5)
[2022-01-24 07:47] LABS: PARTIAL THROMBOPLASTIN TIME 42.9 SECONDS (24.8-34.2)
[2022-01-24 07:49] LABS: D-DIMER QUANT 1611.13 ng/ml (<500)
[2022-01-24] MEDS ORDERED: ISOVUE-370 76% 100ML VIAL As Ordered ONE (08:07)
[2022-01-24] MEDS: FLUCONAZOLE 100 MG TAB PO SCH ×2 (08:08→21:05)
[2022-01-24] MEDS: FAMOTIDINE 20 MG TAB PO SCH (08:09)
[2022-01-24] MEDS: LORATADINE 10 MG TAB PO SCH (08:09)
[2022-01-24 08:31] LABS: APTT 1:2 SUBSTITUTION 36.7 SECONDS
[2022-01-24 14:01] LABS: ALBUMIN 2.3 G/DL (3.2-5.2); BILIRUBIN,DIRECT 0.2 MG/DL (<0.4); BILIRUBIN,TOTAL 0.4 MG/DL (0.3-1.2); TOTAL PROTEIN 4.8 G/DL (5.7-8.2)
[2022-01-24] MEDS: PANTOPRAZOLE 40MG TAB (PROTONIX) PO SCH (21:05)
[2022-01-24] MEDS: ROSUVASTATIN 10 MG TAB (CRESTOR) PO SCH (21:05)
[2022-01-24] MEDS: FILGRASTIM 480 MCG/0.8 ML SYRINGE **SC ADMINISTRATION ONLY SC SCH (21:14)
[2022-01-25] VITALS (19 sets, daily range): BP systolic 86–148; BP diastolic 56–89
[2022-01-25] MEDS: ACYCLOVIR 1,000 MG in D5W 250 ML IV SCH ×3 (00:44→23:46)
[2022-01-25] MEDS ORDERED: METOPROLOL 5 MG/5 ML VIAL IV STA ×2 (00:51→02:15)
[2022-01-25] MEDS: ACETAMINOPHEN 500 MG TAB PO PRN (02:04)
[2022-01-25] MEDS: VANCOMYCIN HCL 750 MG, VIAL MATE ADAPTER 1 EACH in D5W 250 ML IV SCH ×2 (04:50→17:46)
[2022-01-25 06:07] LABS: HEMATOCRIT 26.2 % (42.0-52.0); MEAN CORPUSCULAR HEMOGLOBIN 34.4 pg (27.0-33.0); MEAN CORPUSCULAR HGB CONC 34.4 g/dl (32.0-36.5); RED BLOOD COUNT 2.62 10^6/uL (4.30-6.10)
[2022-01-25] MEDS: CIPROFLOXACIN 500MG TABLET PO SCH ×2 (06:10→17:46)
[2022-01-25] MEDS: VANCOMYCIN HCL 500 MG in D5W MINI-BAG PLUS 100 ML IV SCH ×2 (06:10→19:08)
[2022-01-25 06:13] LABS: PLATELET COUNT, AUTOMATED 12 10^3/uL (150-450)
[2022-01-25 06:35] LABS: BLOOD UREA NITROGEN 12 MG/DL (9-23); CALCIUM LEVEL 7.5 MG/DL (8.3-10.6); CARBON DIOXIDE LEVEL 23 MMOL/L (20-31); CHLORIDE LEVEL 102 MMOL/L (98-107); CREATININE FOR GFR 0.83 MG/DL (0.70-1.30); GLOMERULAR FILTRATION RATE > 60.0 (>49); GLUCOSE, FASTING 130 MG/DL (74-106); POTASSIUM SERUM 3.3 MMOL/L (3.5-5.1); SODIUM LEVEL 138 MMOL/L (136-145)
[2022-01-25 07:22] LABS: LYMPHOCYTES 4 % (16-44); MONOCYTES 56 % (0-5); NEUTROPHILS 39 % (28-66); PLATELET ESTIMATE MARKED DECREASE (NORMAL)
[2022-01-25 07:31] LABS: TOXIC GRANULATION 1+
[2022-01-25 08:15] LABS: MAGNESIUM LEVEL 1.4 MG/DL (1.8-2.4)
[2022-01-25] MEDS: FLUCONAZOLE 100 MG TAB PO SCH ×2 (08:19→22:08)
[2022-01-25] MEDS: POTASSIUM CHLORIDE 10MEQ SR TABLET PO SCH ×2 (08:20→22:08)
[2022-01-25] MEDS: LORATADINE 10 MG TAB PO SCH (08:20)
[2022-01-25] MEDS: traMADol 50 MG TAB PO PRN (08:21)
[2022-01-25] MEDS ORDERED: MORPHINE 2 MG/ML 1ML VIAL IV PRN (12:00)
[2022-01-25] MEDS: MAG SULF 1GM/100ML (MAG RUN) 1 GM in IV 1 EA IV SCH ×2 (12:38→14:09)
[2022-01-25] MEDS: ACETAMINOPHEN 500 MG TAB PO SCH ×3 (12:41→23:46)
[2022-01-25] MEDS: CARVedilol 3.125 MG TAB PO SCH ×2 (12:44→21:00)
[2022-01-25] MEDS: MAGNESIUM OXIDE 400MG TAB (MAG-OX) PO SCH ×2 (12:44→22:08)
[2022-01-25] MEDS: SUMAtriptan SUCCINATE 25 MG TAB PO PRN (13:44)
[2022-01-25] MEDS ORDERED: CALCIUM GLUCONATE 1,000 MG in D5W MINI-BAG PLUS 100 ML IV ONE (14:00)
[2022-01-25] MEDS: ROSUVASTATIN 10 MG TAB (CRESTOR) PO SCH (22:08)
[2022-01-25] MEDS: PANTOPRAZOLE 40MG TAB (PROTONIX) PO SCH (22:08)
[2022-01-25] MEDS: FILGRASTIM 480 MCG/0.8 ML SYRINGE **SC ADMINISTRATION ONLY SC SCH (23:45)
[2022-01-26] VITALS: BP 98/76
[2022-01-26 04:00] VITALS: BP 106/66
[2022-01-26] MEDS: traMADol 50 MG TAB PO PRN (04:07)
[2022-01-26 04:37] LABS: HEMATOCRIT 27.7 % (42.0-52.0); HEMOGLOBIN 9.7 g/dl (13.5-17.5); RED BLOOD COUNT 2.77 10^6/uL (4.30-6.10); WHITE BLOOD COUNT 5.2 10^3/uL (4.0-10.0)
[2022-01-26 04:43] LABS: PLATELET COUNT, AUTOMATED 11 10^3/uL (150-450)
[2022-01-26 04:50] LABS: INR 1.03; PROTHROMBIN TIME 13.7 SECONDS (12.5-14.5)
[2022-01-26 04:51] LABS: PARTIAL THROMBOPLASTIN TIME 40.6 SECONDS (24.8-34.2)
[2022-01-26 04:53] LABS: D-DIMER QUANT 1917.84 ng/ml (<500)
[2022-01-26] MEDS: VANCOMYCIN HCL 750 MG, VIAL MATE ADAPTER 1 EACH in D5W 250 ML IV SCH ×2 (04:53→14:54)
[2022-01-26 05:05] LABS: ANISOCYTOSIS 1+; ATYPICAL LYMPH 1 % (0-5); LYMPHOCYTES 8 % (16-44); METAMYELOCYTES 2 % (0-0); MONOCYTES 36 % (0-5); NEUTROPHILS 52 % (28-66); PLATELET ESTIMATE MARKED DECREASE (NORMAL); POIKILOCYTOSIS 1+
[2022-01-26 05:19] LABS: BLOOD UREA NITROGEN 12 MG/DL (9-23); CALCIUM LEVEL 7.7 MG/DL (8.3-10.6); CARBON DIOXIDE LEVEL 26 MMOL/L (20-31); CHLORIDE LEVEL 106 MMOL/L (98-107); CREATININE FOR GFR 0.81 MG/DL (0.70-1.30); GLOMERULAR FILTRATION RATE > 60.0 (>49); GLUCOSE, FASTING 111 MG/DL (74-106); MAGNESIUM LEVEL 1.7 MG/DL (1.8-2.4); PHOSPHORUS LEVEL 2.4 MG/DL (2.4-5.1); POTASSIUM SERUM 3.8 MMOL/L (3.5-5.1); SODIUM LEVEL 140 MMOL/L (136-145)
[2022-01-26] MEDS: VANCOMYCIN HCL 500 MG in D5W MINI-BAG PLUS 100 ML IV SCH ×2 (05:44→15:52)
[2022-01-26] MEDS: CIPROFLOXACIN 500MG TABLET PO SCH ×2 (06:04→17:24)
[2022-01-26] MEDS: ACETAMINOPHEN 500 MG TAB PO SCH ×3 (06:04→17:24)
[2022-01-26 07:44] VITALS: BP 110/71
[2022-01-26] MEDS: MAG SULF 1GM/100ML (MAG RUN) 1 GM in IV 1 EA IV SCH ×3 (07:56→10:15)
[2022-01-26] MEDS: MAGNESIUM OXIDE 400MG TAB (MAG-OX) PO SCH ×2 (08:51→21:02)
[2022-01-26] MEDS: LORATADINE 10 MG TAB PO SCH (08:51)
[2022-01-26] MEDS: CARVedilol 3.125 MG TAB PO SCH ×2 (08:52→21:02)
[2022-01-26] MEDS: FLUCONAZOLE 100 MG TAB PO SCH ×2 (08:52→21:01)
[2022-01-26 11:28] VITALS: BP 112/68
[2022-01-26] MEDS ORDERED: VANCOMYCIN HCL 750 MG, VIAL MATE ADAPTER 1 EACH in D5W 250 ML IV SCH (13:00)
[2022-01-26] MEDS: SUMAtriptan SUCCINATE 25 MG TAB PO PRN (13:27)
[2022-01-26] MEDS: valACYclovir HCL 500 MG TAB PO SCH ×2 (14:10→21:02)
[2022-01-26 16:00] VITALS: BP 113/92
[2022-01-26 20:00] VITALS: BP 105/67
[2022-01-26] MEDS: ROSUVASTATIN 10 MG TAB (CRESTOR) PO SCH (21:02)
[2022-01-26] MEDS: PANTOPRAZOLE 40MG TAB (PROTONIX) PO SCH (21:03)
[2022-01-27] VITALS (9 sets, daily range): BP systolic 93–105; BP diastolic 48–70
[2022-01-27] MEDS: ACETAMINOPHEN 500 MG TAB PO SCH ×4 (00:31→17:49)
[2022-01-27] MEDS: VANCOMYCIN HCL 750 MG, VIAL MATE ADAPTER 1 EACH in D5W 250 ML IV SCH ×2 (02:57→15:27)
[2022-01-27] MEDS: VANCOMYCIN HCL 500 MG in D5W MINI-BAG PLUS 100 ML IV SCH ×2 (04:10→15:28)
[2022-01-27 05:42] LABS: HEMATOCRIT 26.2 % (42.0-52.0); HEMOGLOBIN 9.1 g/dl (13.5-17.5); MEAN CORPUSCULAR HEMOGLOBIN 34.7 pg (27.0-33.0); MEAN CORPUSCULAR HGB CONC 34.7 g/dl (32.0-36.5); RED BLOOD COUNT 2.62 10^6/uL (4.30-6.10); WHITE BLOOD COUNT 9.4 10^3/uL (4.0-10.0)
[2022-01-27 05:45] LABS: PLATELET COUNT, AUTOMATED 13 10^3/uL (150-450)
[2022-01-27] MEDS: CIPROFLOXACIN 500MG TABLET PO SCH ×2 (06:25→17:49)
[2022-01-27 06:32] LABS: BLOOD UREA NITROGEN 12 MG/DL (9-23); CALCIUM LEVEL 8.1 MG/DL (8.3-10.6); CARBON DIOXIDE LEVEL 25 MMOL/L (20-31); CHLORIDE LEVEL 104 MMOL/L (98-107); CREATININE FOR GFR 0.85 MG/DL (0.70-1.30); GLOMERULAR FILTRATION RATE > 60.0 (>49); GLUCOSE, FASTING 139 MG/DL (74-106); MAGNESIUM LEVEL 1.8 MG/DL (1.8-2.4); PHOSPHORUS LEVEL 2.3 MG/DL (2.4-5.1); POTASSIUM SERUM 3.9 MMOL/L (3.5-5.1); SODIUM LEVEL 137 MMOL/L (136-145)
[2022-01-27 06:57] LABS: ATYPICAL LYMPH 2 % (0-5); LYMPHOCYTES 5 % (16-44); MONOCYTES 24 % (0-5); NEUTROPHILS 67 % (28-66); PLATELET ESTIMATE MARKED DECREASE (NORMAL)
[2022-01-27] MEDS ORDERED: MAG SULF 1GM/100ML (MAG RUN) 1 GM in IV 1 EA IV ONE (07:00)
[2022-01-27] MEDS: NEUTRA-PHOS 1.5 GM PACKET PO SCH ×3 (08:47→20:23)
[2022-01-27] MEDS: FLUCONAZOLE 100 MG TAB PO SCH ×2 (08:47→20:23)
[2022-01-27] MEDS: MAGNESIUM OXIDE 400MG TAB (MAG-OX) PO SCH ×3 (08:47→20:21)
[2022-01-27] MEDS: CARVedilol 3.125 MG TAB PO SCH ×2 (08:47→20:22)
[2022-01-27] MEDS: LORATADINE 10 MG TAB PO SCH (08:48)
[2022-01-27] MEDS: valACYclovir HCL 500 MG TAB PO SCH ×2 (10:44→20:23)
[2022-01-27] MEDS ORDERED: diphenhydrAMINE 50MG/ML VIAL IV ONE (17:30)
[2022-01-27] MEDS: PANTOPRAZOLE 40MG TAB (PROTONIX) PO SCH (20:21)
[2022-01-27] MEDS: ROSUVASTATIN 10 MG TAB (CRESTOR) PO SCH (20:21)
[2022-01-28] MEDS: ACETAMINOPHEN 500 MG TAB PO SCH ×4 (00:51→17:09)
[2022-01-28] MEDS: VANCOMYCIN HCL 750 MG, VIAL MATE ADAPTER 1 EACH in D5W 250 ML IV SCH ×3 (03:40→17:23)
[2022-01-28 04:00] VITALS: BP 100/66
[2022-01-28] MEDS: VANCOMYCIN HCL 500 MG in D5W MINI-BAG PLUS 100 ML IV SCH ×3 (05:15→17:00)
[2022-01-28] MEDS: CIPROFLOXACIN 500MG TABLET PO SCH ×2 (05:22→17:09)
[2022-01-28 05:36] LABS: BASO % 0.3 % (0.0-1.0); HEMATOCRIT 24.1 % (42.0-52.0); HEMOGLOBIN 8.4 g/dl (13.5-17.5); LYMPH # 0.7 10^3/uL (1.5-5.0); LYMPH % 10.6 % (24.0-44.0); MEAN CORPUSCULAR HGB CONC 34.9 g/dl (32.0-36.5); MEAN CORPUSCULAR VOLUME 100.4 fl (80.0-96.0); MONO % 27.7 % (2.0-8.0); NEUTROPHILS # 3.9 10^3/uL (1.5-8.5); NEUTROPHILS % 59.6 % (36.0-66.0); WHITE BLOOD COUNT 6.5 10^3/uL (4.0-10.0)
[2022-01-28 05:38] LABS: MONO # 1.8 10^3/uL (0.0-0.8); PLATELET COUNT, AUTOMATED 29 10^3/uL (150-450)
[2022-01-28 06:24] LABS: BLOOD UREA NITROGEN 12 MG/DL (9-23); CALCIUM LEVEL 7.8 MG/DL (8.3-10.6); CARBON DIOXIDE LEVEL 25 MMOL/L (20-31); CHLORIDE LEVEL 104 MMOL/L (98-107); CREATININE FOR GFR 0.84 MG/DL (0.70-1.30); GLOMERULAR FILTRATION RATE > 60.0 (>49); GLUCOSE, FASTING 142 MG/DL (74-106); POTASSIUM SERUM 3.9 MMOL/L (3.5-5.1); SODIUM LEVEL 139 MMOL/L (136-145)
[2022-01-28 07:45] VITALS: BP 117/71
[2022-01-28 08:21] LABS: MAGNESIUM LEVEL 1.8 MG/DL (1.8-2.4); PHOSPHORUS LEVEL 3.4 MG/DL (2.4-5.1)
[2022-01-28] MEDS: MAGNESIUM OXIDE 400MG TAB (MAG-OX) PO SCH ×3 (08:35→20:13)
[2022-01-28] MEDS: CARVedilol 3.125 MG TAB PO SCH ×2 (08:35→20:14)
[2022-01-28] MEDS: NEUTRA-PHOS 1.5 GM PACKET PO SCH ×3 (08:35→21:49)
[2022-01-28] MEDS: valACYclovir HCL 500 MG TAB PO SCH ×2 (08:35→20:13)
[2022-01-28] MEDS: LORATADINE 10 MG TAB PO SCH (08:35)
[2022-01-28] MEDS: FLUCONAZOLE 100 MG TAB PO SCH ×2 (08:36→20:13)
[2022-01-28 12:00] VITALS: BP 109/66
[2022-01-28] MEDS: traMADol 50 MG TAB PO PRN (12:54)
[2022-01-28 14:30] VITALS: BP 106/78
[2022-01-28 20:00] VITALS: BP 114/71
[2022-01-28] MEDS: SUMAtriptan SUCCINATE 25 MG TAB PO PRN (20:12)
[2022-01-28] MEDS: ROSUVASTATIN 10 MG TAB (CRESTOR) PO SCH (20:13)
[2022-01-28] MEDS: PANTOPRAZOLE 40MG TAB (PROTONIX) PO SCH (20:14)
[2022-01-28] MEDS: KETOROLAC 30 MG/ML 1ML VIAL IV PRN (23:43)
[2022-01-29] MEDS: VANCOMYCIN HCL 500 MG in D5W MINI-BAG PLUS 100 ML IV SCH ×2 (04:32→16:16)
[2022-01-29] MEDS: ACETAMINOPHEN 500 MG TAB PO SCH ×4 (05:27→17:00)
[2022-01-29] MEDS: CIPROFLOXACIN 500MG TABLET PO SCH ×2 (05:27→17:01)
[2022-01-29] MEDS: VANCOMYCIN HCL 750 MG, VIAL MATE ADAPTER 1 EACH in D5W 250 ML IV SCH ×2 (05:44→14:57)
[2022-01-29 05:57] VITALS: BP 109/77
[2022-01-29 06:19] LABS: BASO % 0.2 % (0.0-1.0); HEMATOCRIT 25.2 % (42.0-52.0); HEMOGLOBIN 8.6 g/dl (13.5-17.5); LYMPH # 0.7 10^3/uL (1.5-5.0); LYMPH % 14.6 % (24.0-44.0); MEAN CORPUSCULAR HEMOGLOBIN 34.5 pg (27.0-33.0); MEAN CORPUSCULAR HGB CONC 34.1 g/dl (32.0-36.5); MEAN CORPUSCULAR VOLUME 101.2 fl (80.0-96.0); MONO % 33.9 % (2.0-8.0); NEUTROPHILS # 2.4 10^3/uL (1.5-8.5); NEUTROPHILS % 49.8 % (36.0-66.0); RED BLOOD COUNT 2.49 10^6/uL (4.30-6.10); WHITE BLOOD COUNT 4.8 10^3/uL (4.0-10.0)
[2022-01-29 06:23] LABS: MONO # 1.6 10^3/uL (0.0-0.8); PLATELET COUNT, AUTOMATED 32 10^3/uL (150-450)
[2022-01-29 06:46] LABS: BLOOD UREA NITROGEN 12 MG/DL (9-23); CARBON DIOXIDE LEVEL 25 MMOL/L (20-31); CHLORIDE LEVEL 102 MMOL/L (98-107); GLOMERULAR FILTRATION RATE > 60.0 (>49); GLUCOSE, FASTING 121 MG/DL (74-106); MAGNESIUM LEVEL 1.8 MG/DL (1.8-2.4); PHOSPHORUS LEVEL 3.7 MG/DL (2.4-5.1); POTASSIUM SERUM 4.1 MMOL/L (3.5-5.1); SODIUM LEVEL 136 MMOL/L (136-145)
[2022-01-29] MEDS: NEUTRA-PHOS 1.5 GM PACKET PO SCH ×3 (09:31→22:14)
[2022-01-29] MEDS: MAG SULF 1GM/100ML (MAG RUN) 1 GM in IV 1 EA IV SCH ×2 (09:31→11:26)
[2022-01-29] MEDS: MAGNESIUM OXIDE 400MG TAB (MAG-OX) PO SCH ×3 (09:32→21:48)
[2022-01-29] MEDS: FLUCONAZOLE 100 MG TAB PO SCH ×2 (09:32→21:49)
[2022-01-29] MEDS: valACYclovir HCL 500 MG TAB PO SCH ×2 (09:32→21:47)
[2022-01-29] MEDS: LORATADINE 10 MG TAB PO SCH (09:33)
[2022-01-29] MEDS: CARVedilol 3.125 MG TAB PO SCH ×2 (09:35→21:48)
[2022-01-29 14:00] VITALS: BP 113/78
[2022-01-29 21:45] VITALS: BP 116/79
[2022-01-29] MEDS: PANTOPRAZOLE 40MG TAB (PROTONIX) PO SCH (21:47)
[2022-01-29] MEDS: ROSUVASTATIN 10 MG TAB (CRESTOR) PO SCH (21:47)
[2022-01-29] MEDS: KETOROLAC 30 MG/ML 1ML VIAL IV PRN (23:35)
[2022-01-30] MEDS: VANCOMYCIN HCL 750 MG, VIAL MATE ADAPTER 1 EACH in D5W 250 ML IV SCH ×2 (02:55→14:49)
[2022-01-30] MEDS: VANCOMYCIN HCL 500 MG in D5W MINI-BAG PLUS 100 ML IV SCH ×2 (03:42→14:58)
[2022-01-30 04:54] VITALS: BP 114/78
[2022-01-30] MEDS: CIPROFLOXACIN 500MG TABLET PO SCH (05:04)
[2022-01-30] MEDS: ACETAMINOPHEN 500 MG TAB PO SCH ×2 (05:11)
[2022-01-30 06:06] LABS: BASO % 0.4 % (0.0-1.0); HEMATOCRIT 24.3 % (42.0-52.0); HEMOGLOBIN 8.4 g/dl (13.5-17.5); LYMPH # 0.6 10^3/uL (1.5-5.0); LYMPH % 12.3 % (24.0-44.0); MEAN CORPUSCULAR HEMOGLOBIN 34.7 pg (27.0-33.0); MEAN CORPUSCULAR HGB CONC 34.6 g/dl (32.0-36.5); MEAN CORPUSCULAR VOLUME 100.4 fl (80.0-96.0); MONO % 34.9 % (2.0-8.0); NEUTROPHILS # 2.6 10^3/uL (1.5-8.5); NEUTROPHILS % 51.2 % (36.0-66.0); RED BLOOD COUNT 2.42 10^6/uL (4.30-6.10); WHITE BLOOD COUNT 5.1 10^3/uL (4.0-10.0)
[2022-01-30 06:13] LABS: MONO # 1.8 10^3/uL (0.0-0.8); PLATELET COUNT, AUTOMATED 41 10^3/uL (150-450)
[2022-01-30 06:47] LABS: BLOOD UREA NITROGEN 13 MG/DL (9-23); CALCIUM LEVEL 7.8 MG/DL (8.3-10.6); CARBON DIOXIDE LEVEL 24 MMOL/L (20-31); CHLORIDE LEVEL 104 MMOL/L (98-107); CREATININE FOR GFR 0.93 MG/DL (0.70-1.30); GLOMERULAR FILTRATION RATE > 60.0 (>49); GLUCOSE, FASTING 112 MG/DL (74-106); MAGNESIUM LEVEL 1.9 MG/DL (1.8-2.4); PHOSPHORUS LEVEL 2.9 MG/DL (2.4-5.1); POTASSIUM SERUM 4.2 MMOL/L (3.5-5.1); SODIUM LEVEL 137 MMOL/L (136-145)
[2022-01-30] MEDS ORDERED: LIDOCAINE 5% (LIDODERM) PATCH TD SCH (09:00)
[2022-01-30] MEDS ORDERED: LIDOCAINE 1% MDV 20ML VIAL As Ordered ONE (09:35)
[2022-01-30] MEDS: FLUCONAZOLE 100 MG TAB PO SCH (09:36)
[2022-01-30] MEDS: LORATADINE 10 MG TAB PO SCH (09:36)
[2022-01-30] MEDS: valACYclovir HCL 500 MG TAB PO SCH (09:36)
[2022-01-30] MEDS: SUMAtriptan SUCCINATE 25 MG TAB PO PRN (09:36)
[2022-01-30] MEDS: MAGNESIUM OXIDE 400MG TAB (MAG-OX) PO SCH ×2 (09:36→14:56)
[2022-01-30 09:37] VITALS: BP 114/78
[2022-01-30] MEDS: CARVedilol 3.125 MG TAB PO SCH (09:37)
[2022-01-30] MEDS: traMADol 50 MG TAB PO PRN (11:53)
[2022-01-30 14:00] VITALS: BP 115/75
[2022-01-30] MEDS ORDERED: SUMA25TA3 PO (14:26)
[2022-01-30] MEDS ORDERED: ACET500T15 PO (14:26)
[2022-01-30] MEDS ORDERED: LIDO5TD TD (14:26)
[2022-01-30] MEDS ORDERED: VANC1.2510 IV (14:26)
[2022-01-30] MEDS ORDERED: TRAM50TA2 PO (14:26)
[2022-01-30] MEDS ORDERED: MAGN400T2 PO (14:26)
[2022-01-30] MEDS ORDERED: SODIUM CHLORIDE 0.9% INJ 10 ML SYR IV PRN (15:10)
[2022-01-30] MEDS ORDERED: SODIUM CHLORIDE 0.9% INJ 10 ML SYR IV SCH (18:00)
== END 2022-01-30 17:27 | disposition home health service (06) | DRG 871 ==
LOC: M ED 12:13 → M ED INP 16:17 → M PCU 16:17 → ENRESERV 01-21 15:06 → M PCU 01-21 20:24 → M MSPAV 01-28 14:24
PROVIDERS: ADMIT Internal Medicine Nephrology; ATTEND Student in an Organized Health Care Education/Training Program
PROC: 30233R1 Transfusion of Nonautologous Platelets into Peripheral Vein, Percutaneous Approach (ICD-10-PCS; principal; 2022-01-20)
PROC: B246ZZZ Ultrasonography of Right and Left Heart (ICD-10-PCS; 2022-01-23)
DX: A41.9 Sepsis, unspecified organism (principal); D61.810 Antineoplastic chemotherapy induced pancytopenia; B00.3 Herpesviral meningitis; C92.00 Acute myeloblastic leukemia, not having achieved remission; Z94.81 Bone marrow transplant status; I48.91 Unspecified atrial fibrillation; Z87.891 Personal history of nicotine dependence; Z20.822 Contact with and (suspected) exposure to COVID-19; Z79.01 Long term (current) use of anticoagulants; Z79.899 Other long term (current) drug therapy; D69.6 Thrombocytopenia, unspecified; D70.9 Neutropenia, unspecified; K21.9 Gastro-esophageal reflux disease without esophagitis

== ENCOUNTER → 2022-02-03 | Outpatient (REF) | payer MEDICARE ==
[~2022-02-03] MED LIST changes: +DIFL200T PO; +LIDO5TD TD; +MAGN400T2 PO; +SUMA25TA3 PO; +VALT1TAB PO; +VANC1.2510 IV
[2022-02-03 14:05] LABS: HEMATOCRIT 23.7 % (42.0-52.0); HEMOGLOBIN 7.9 g/dl (13.5-17.5); MEAN CORPUSCULAR HEMOGLOBIN 35.3 pg (27.0-33.0); MEAN CORPUSCULAR HGB CONC 33.3 g/dl (32.0-36.5); MEAN CORPUSCULAR VOLUME 105.8 fl (80.0-96.0); PLATELET COUNT, AUTOMATED 127 10^3/uL (150-450); RED BLOOD COUNT 2.24 10^6/uL (4.30-6.10); WHITE BLOOD COUNT 4.8 10^3/uL (4.0-10.0)
[2022-02-03 14:45] LABS: VANCOMYCIN RANDOM 24.1 UG/ML
[2022-02-03 14:47] LABS: BLOOD UREA NITROGEN 17 MG/DL (9-23); CALCIUM LEVEL 8.1 MG/DL (8.3-10.6); CARBON DIOXIDE LEVEL 26 MMOL/L (20-31); CHLORIDE LEVEL 102 MMOL/L (98-107); CREATININE FOR GFR 0.87 MG/DL (0.70-1.30); GLOMERULAR FILTRATION RATE > 60.0 (>49); GLUCOSE, FASTING 115 MG/DL (74-106); POTASSIUM SERUM 3.9 MMOL/L (3.5-5.1); SODIUM LEVEL 137 MMOL/L (136-145)
== END ==
LOC: M SHH 13:51
PROVIDERS: ATTEND Internal Medicine Infectious Disease
DX: Z51.81 Encounter for therapeutic drug level monitoring (principal); Z79.1 Long term (current) use of non-steroidal anti-inflammatories (NSAID)

== ENCOUNTER → 2022-04-11 | Outpatient (CLI) | payer MEDICARE ==
[~2022-04-11] MED LIST changes: +BACL10TA2; +BACL10TA2 PO; +METO200T28 PO
== END ==
LOC: M WUC 08:31
PROVIDERS: ATTEND Internal Medicine
DX: R05.9 Cough, unspecified (principal); R91.8 Other nonspecific abnormal finding of lung field

== ENCOUNTER → 2022-04-18 | Outpatient (CLI) | payer MEDICARE | LOC: M WUC 10:01 | PROVIDERS: ATTEND Internal Medicine | DX: J18.9 Pneumonia, unspecified organism (principal); R05.9 Cough, unspecified ==

== ENCOUNTER 2022-05-16 15:28 | Inpatient (IN) | payer MEDICARE ==
[~2022-05-16] VITALS: Ht 190.5 cm; Wt 91.6 kg
[~2022-05-16 15:28] MED LIST changes: +DELS1LIQ3 PO; +LEVO1TAB39 PO; +OMEP40CA5 PO; +OXYC-517 PO
[2022-05-16] MEDS ORDERED: CIPROFLOXACIN 500MG TABLET PO ONE (17:05)
[2022-05-16] MEDS ORDERED: diphenhydrAMINE 50MG/ML VIAL IV ONE ×2 (17:15→22:00)
[2022-05-16 17:59] VITALS: BP 109/68
[2022-05-16 18:25] LABS: INR 1.03; PROTHROMBIN TIME 13.7 SECONDS (12.5-14.5)
[2022-05-16] MEDS ORDERED: MAGN400T33 PO (18:33)
[2022-05-16 18:38] VITALS: BP 111/71
[2022-05-16] MEDS ORDERED: ONDANSETRON 4MG ORAL DISINTEGRATING TAB PO PRN (18:45)
[2022-05-16] MEDS ORDERED: HOME MED LIST COMPLETE! XX SCH (18:45)
[2022-05-16] MEDS ORDERED: VANCOMYCIN HCL 1,000 MG, VIAL MATE ADAPTER 1 EACH in D5W 250 ML IV ONE (20:00)
[2022-05-16] MEDS ORDERED: VANCOMYCIN HCL 750 MG, VIAL MATE ADAPTER 1 EACH in D5W 250 ML IV ONE (21:00)
[2022-05-16] MEDS ORDERED: CARVedilol 3.125 MG TAB PO SCH (21:00)
[2022-05-16 21:25] VITALS: BP 108/71
[2022-05-16] MEDS: ROSUVASTATIN 10 MG TAB (CRESTOR) PO SCH (22:07)
[2022-05-16] MEDS: OMEPRAZOLE 20MG CAP PO SCH (22:07)
[2022-05-16] MEDS: BACLOFEN 10 MG TAB PO SCH ×2 (22:08→22:27)
[2022-05-16] MEDS: valACYclovir HCL 500 MG TAB PO SCH (22:30)
[2022-05-17] VITALS (13 sets, daily range): BP systolic 86–103; BP diastolic 52–71
[2022-05-17] MEDS: ACETAMINOPHEN TAB 650MG DOSE (2X325MG) PO PRN ×2 (00:16→11:43)
[2022-05-17] MEDS ORDERED: NS 500 ML IV ONE (04:35)
[2022-05-17 05:22] LABS: HEMATOCRIT 24.3 % (42.0-52.0); HEMOGLOBIN 8.4 g/dl (13.5-17.5); MEAN CORPUSCULAR HGB CONC 34.6 g/dl (32.0-36.5); RED BLOOD COUNT 2.21 10^6/uL (4.30-6.10)
[2022-05-17 05:25] LABS: PLATELET COUNT, AUTOMATED 22 10^3/uL (150-450); WHITE BLOOD COUNT 0.1 10^3/uL (4.0-10.0)
[2022-05-17 05:53] LABS: ALBUMIN 2.7 G/DL (3.2-5.2); ALKALINE PHOSPHATASE 102 U/L (46-116); ALT/SGPT 16 U/L (7.0-40); AST/SGOT 10 U/L (<34); BILIRUBIN,TOTAL 0.5 MG/DL (0.3-1.2); BLOOD UREA NITROGEN 16 MG/DL (9-23); CALCIUM LEVEL 8.3 MG/DL (8.3-10.6); CARBON DIOXIDE LEVEL 26 MMOL/L (20-31); CHLORIDE LEVEL 106 MMOL/L (98-107); CREATININE FOR GFR 0.86 MG/DL (0.70-1.30); GLOMERULAR FILTRATION RATE > 60.0 (>49); GLUCOSE, FASTING 102 MG/DL (74-106); POTASSIUM SERUM 4.1 MMOL/L (3.5-5.1); SODIUM LEVEL 139 MMOL/L (136-145); TOTAL PROTEIN 5.1 G/DL (5.7-8.2)
[2022-05-17 08:15] LABS: EOS % 6.7 % (0.0-3.0); LYMPH # 0.1 10^3/uL (1.5-5.0); MONO % 26.7 % (2.0-8.0); NEUTROPHILS % 6.6 % (36.0-66.0)
[2022-05-17] MEDS: OMEPRAZOLE 20MG CAP PO SCH ×2 (08:20→20:02)
[2022-05-17] MEDS: valACYclovir HCL 500 MG TAB PO SCH ×2 (08:20→20:03)
[2022-05-17] MEDS: LevoFLOXacin 750 MG TABLET PO SCH (08:22)
[2022-05-17] MEDS: MULTIVITAMINS/MINERALS THERAP 1 TAB PO SCH (08:22)
[2022-05-17] MEDS: FAMOTIDINE 20 MG TAB PO SCH (08:22)
[2022-05-17] MEDS: BACLOFEN 10 MG TAB PO SCH ×3 (08:22→20:02)
[2022-05-17] MEDS: LORATADINE 10 MG TAB PO SCH (08:23)
[2022-05-17] MEDS: CARVedilol 3.125 MG TAB PO SCH ×3 (08:25→20:02)
[2022-05-17] MEDS: VANCOMYCIN HCL 750 MG, VIAL MATE ADAPTER 1 EACH in D5W 250 ML IV SCH ×2 (08:52→19:35)
[2022-05-17] MEDS: FLUCONAZOLE 100 MG TAB PO SCH (08:53)
[2022-05-17] MEDS: VANCOMYCIN HCL 500 MG in D5W MINI-BAG PLUS 100 ML IV SCH ×2 (10:15→21:48)
[2022-05-17] MEDS: FILGRASTIM 480 MCG/0.8 ML SYRINGE **SC ADMINISTRATION ONLY SC SCH (12:23)
[2022-05-17 13:31] LABS: MAGNESIUM LEVEL 1.7 MG/DL (1.8-2.4)
[2022-05-17] MEDS: MAG SULF 1GM/100ML (MAG RUN) 1 GM in IV 1 EA IV SCH ×2 (14:42→15:51)
[2022-05-17] MEDS: oxyCODONE 5MG TAB PO PRN (16:51)
[2022-05-17] MEDS: ROSUVASTATIN 10 MG TAB (CRESTOR) PO SCH (20:02)
[2022-05-18] VITALS (7 sets, daily range): BP systolic 80–98; BP diastolic 50–72
[2022-05-18 07:41] LABS: HEMATOCRIT 24.9 % (42.0-52.0); HEMOGLOBIN 8.5 g/dl (13.5-17.5); LYMPH # 0.1 10^3/uL (1.5-5.0); LYMPH % 39.4 % (24.0-44.0); MEAN CORPUSCULAR HEMOGLOBIN 37.4 pg (27.0-33.0); MEAN CORPUSCULAR HGB CONC 34.1 g/dl (32.0-36.5); MEAN CORPUSCULAR VOLUME 109.7 fl (80.0-96.0); MONO # 0.2 10^3/uL (0.0-0.8); MONO % 48.5 % (2.0-8.0); NEUTROPHILS % 9.1 % (36.0-66.0); RED BLOOD COUNT 2.27 10^6/uL (4.30-6.10)
[2022-05-18 07:45] LABS: WHITE BLOOD COUNT 0.3 10^3/uL (4.0-10.0)
[2022-05-18 07:46] LABS: PLATELET COUNT, AUTOMATED 13 10^3/uL (150-450)
[2022-05-18 08:00] LABS: VANCOMYCIN LEVEL TROUGH 14.3 UG/ML (10.0-20.0)
[2022-05-18 08:21] LABS: ALBUMIN 2.6 G/DL (3.2-5.2); ALKALINE PHOSPHATASE 110 U/L (46-116); ALT/SGPT 16 U/L (7.0-40); AST/SGOT 11 U/L (<34); BILIRUBIN,TOTAL 0.4 MG/DL (0.3-1.2); BLOOD UREA NITROGEN 16 MG/DL (9-23); CALCIUM LEVEL 8.1 MG/DL (8.3-10.6); CARBON DIOXIDE LEVEL 26 MMOL/L (20-31); CHLORIDE LEVEL 106 MMOL/L (98-107); CREATININE FOR GFR 0.83 MG/DL (0.70-1.30); GLOMERULAR FILTRATION RATE > 60.0 (>49); GLUCOSE, FASTING 105 MG/DL (74-106); POTASSIUM SERUM 4.3 MMOL/L (3.5-5.1); SODIUM LEVEL 139 MMOL/L (136-145)
[2022-05-18] MEDS: CARVedilol 3.125 MG TAB PO SCH ×2 (08:45→21:00)
[2022-05-18] MEDS: VANCOMYCIN HCL 750 MG, VIAL MATE ADAPTER 1 EACH in D5W 250 ML IV SCH ×2 (08:57→21:30)
[2022-05-18] MEDS: MULTIVITAMINS/MINERALS THERAP 1 TAB PO SCH (08:58)
[2022-05-18] MEDS: valACYclovir HCL 500 MG TAB PO SCH ×2 (08:58→20:05)
[2022-05-18] MEDS: FAMOTIDINE 20 MG TAB PO SCH (08:58)
[2022-05-18] MEDS: OMEPRAZOLE 20MG CAP PO SCH ×2 (08:58→20:04)
[2022-05-18] MEDS: BACLOFEN 10 MG TAB PO SCH ×3 (08:58→20:04)
[2022-05-18] MEDS: LORATADINE 10 MG TAB PO SCH (08:58)
[2022-05-18] MEDS: FLUCONAZOLE 100 MG TAB PO SCH (08:58)
[2022-05-18] MEDS: LevoFLOXacin 750 MG TABLET PO SCH (08:58)
[2022-05-18 10:03] LABS: MAGNESIUM LEVEL 1.9 MG/DL (1.8-2.4)
[2022-05-18] MEDS: VANCOMYCIN HCL 500 MG in D5W MINI-BAG PLUS 100 ML IV SCH ×2 (10:10→21:33)
[2022-05-18] MEDS: FILGRASTIM 480 MCG/0.8 ML SYRINGE **SC ADMINISTRATION ONLY SC SCH (10:10)
[2022-05-18] MEDS: MIRALAX *UNIT DOSE* 17GM PACKET PO SCH (14:17)
[2022-05-18 18:38] LABS: BASO % 1.8 % (0.0-1.0); EOS % 1.8 % (0.0-3.0); HEMATOCRIT 24.2 % (42.0-52.0); HEMOGLOBIN 8.3 g/dl (13.5-17.5); LYMPH # 0.1 10^3/uL (1.5-5.0); MEAN CORPUSCULAR HEMOGLOBIN 37.9 pg (27.0-33.0); MEAN CORPUSCULAR HGB CONC 34.3 g/dl (32.0-36.5); MEAN CORPUSCULAR VOLUME 110.5 fl (80.0-96.0); MONO # 0.3 10^3/uL (0.0-0.8); MONO % 53.6 % (2.0-8.0); NEUTROPHILS % 17.8 % (36.0-66.0); RED BLOOD COUNT 2.19 10^6/uL (4.30-6.10)
[2022-05-18 18:41] LABS: WHITE BLOOD COUNT 0.6 10^3/uL (4.0-10.0)
[2022-05-18 18:42] LABS: PLATELET COUNT, AUTOMATED 11 10^3/uL (150-450)
[2022-05-18 18:44] LABS: NEUTROPHILS # 0.1 10^3/uL (1.5-8.5)
[2022-05-18] MEDS: oxyCODONE 5MG TAB PO PRN (20:05)
[2022-05-18] MEDS: ROSUVASTATIN 10 MG TAB (CRESTOR) PO SCH (20:05)
[2022-05-19] VITALS (11 sets, daily range): BP systolic 88–110; BP diastolic 62–71
[2022-05-19 05:39] LABS: BASO % 0.9 % (0.0-1.0); EOS % 0.9 % (0.0-3.0); HEMATOCRIT 23.7 % (42.0-52.0); HEMOGLOBIN 8.1 g/dl (13.5-17.5); LYMPH # 0.2 10^3/uL (1.5-5.0); LYMPH % 15.1 % (24.0-44.0); MEAN CORPUSCULAR HEMOGLOBIN 37.7 pg (27.0-33.0); MEAN CORPUSCULAR HGB CONC 34.2 g/dl (32.0-36.5); MEAN CORPUSCULAR VOLUME 110.2 fl (80.0-96.0); MONO # 0.6 10^3/uL (0.0-0.8); MONO % 52.8 % (2.0-8.0); NEUTROPHILS % 29.4 % (36.0-66.0); RED BLOOD COUNT 2.15 10^6/uL (4.30-6.10); WHITE BLOOD COUNT 1.1 10^3/uL (4.0-10.0)
[2022-05-19 05:48] LABS: NEUTROPHILS # 0.3 10^3/uL (1.5-8.5); PLATELET COUNT, AUTOMATED 7 10^3/uL (150-450)
[2022-05-19 06:02] LABS: ALBUMIN 2.5 G/DL (3.2-5.2); ALKALINE PHOSPHATASE 108 U/L (46-116); ALT/SGPT 16 U/L (7.0-40); AST/SGOT 13 U/L (<34); BILIRUBIN,TOTAL 0.3 MG/DL (0.3-1.2); BLOOD UREA NITROGEN 17 MG/DL (9-23); CALCIUM LEVEL 8.1 MG/DL (8.3-10.6); CARBON DIOXIDE LEVEL 24 MMOL/L (20-31); CHLORIDE LEVEL 106 MMOL/L (98-107); CREATININE FOR GFR 0.83 MG/DL (0.70-1.30); GLOMERULAR FILTRATION RATE > 60.0 (>49); GLUCOSE, FASTING 100 MG/DL (74-106); POTASSIUM SERUM 4.2 MMOL/L (3.5-5.1); SODIUM LEVEL 138 MMOL/L (136-145); TOTAL PROTEIN 4.9 G/DL (5.7-8.2)
[2022-05-19] MEDS: OMEPRAZOLE 20MG CAP PO SCH ×2 (08:51→20:40)
[2022-05-19] MEDS: VANCOMYCIN HCL 750 MG, VIAL MATE ADAPTER 1 EACH in D5W 250 ML IV SCH (08:51)
[2022-05-19] MEDS: MULTIVITAMINS/MINERALS THERAP 1 TAB PO SCH (08:51)
[2022-05-19] MEDS: LevoFLOXacin 750 MG TABLET PO SCH (08:51)
[2022-05-19] MEDS: FLUCONAZOLE 100 MG TAB PO SCH (08:51)
[2022-05-19] MEDS: valACYclovir HCL 500 MG TAB PO SCH ×2 (08:52→20:39)
[2022-05-19] MEDS: BACLOFEN 10 MG TAB PO SCH ×3 (08:52→20:39)
[2022-05-19] MEDS: FAMOTIDINE 20 MG TAB PO SCH (08:52)
[2022-05-19] MEDS: LORATADINE 10 MG TAB PO SCH (08:52)
[2022-05-19] MEDS: MIRALAX *UNIT DOSE* 17GM PACKET PO SCH (08:53)
[2022-05-19] MEDS: FILGRASTIM 480 MCG/0.8 ML SYRINGE **SC ADMINISTRATION ONLY SC SCH (10:11)
[2022-05-19] MEDS: VANCOMYCIN HCL 500 MG in D5W MINI-BAG PLUS 100 ML IV SCH (10:11)
[2022-05-19] MEDS: CARVedilol 3.125 MG TAB PO SCH ×2 (10:14→20:39)
[2022-05-19] MEDS ORDERED: diphenhydrAMINE 25MG CAP PO ONE (13:00)
[2022-05-19] MEDS ORDERED: DARBEPOETIN 200MCG/0.4ML *NON-DIALYSIS* SYRINGE SC ONE (13:00)
[2022-05-19] MEDS ORDERED: diphenhydrAMINE 50MG/ML VIAL IV ONE (13:00)
[2022-05-19] MEDS: oxyCODONE 5MG TAB PO PRN (17:56)
[2022-05-19] MEDS: ACETAMINOPHEN TAB 650MG DOSE (2X325MG) PO PRN (18:32)
[2022-05-19] MEDS: DOXYCYCLINE HYCLATE 100MG TABLET PO SCH (20:39)
[2022-05-19] MEDS: ROSUVASTATIN 10 MG TAB (CRESTOR) PO SCH (20:39)
[2022-05-19 23:34] LABS: BASO % 0.7 % (0.0-1.0); EOS % 0.3 % (0.0-3.0); HEMATOCRIT 25.7 % (42.0-52.0); HEMOGLOBIN 9.1 g/dl (13.5-17.5); LYMPH # 0.3 10^3/uL (1.5-5.0); LYMPH % 8.9 % (24.0-44.0); MEAN CORPUSCULAR HGB CONC 35.4 g/dl (32.0-36.5); MEAN CORPUSCULAR VOLUME 104.5 fl (80.0-96.0); MONO # 1.5 10^3/uL (0.0-0.8); NEUTROPHILS % 30.6 % (36.0-66.0); RED BLOOD COUNT 2.46 10^6/uL (4.30-6.10)
[2022-05-19 23:48] LABS: NEUTROPHILS # 0.9 10^3/uL (1.5-8.5)
[2022-05-19 23:49] LABS: PLATELET COUNT, AUTOMATED 19 10^3/uL (150-450)
[2022-05-20] VITALS: BP 102/66
[2022-05-20 03:45] VITALS: BP 101/67
[2022-05-20 07:00] LABS: BASO % 0.9 % (0.0-1.0); EOS % 0.2 % (0.0-3.0); HEMATOCRIT 28.5 % (42.0-52.0); HEMOGLOBIN 9.6 g/dl (13.5-17.5); LYMPH # 0.7 10^3/uL (1.5-5.0); MEAN CORPUSCULAR HEMOGLOBIN 35.8 pg (27.0-33.0); MEAN CORPUSCULAR HGB CONC 33.7 g/dl (32.0-36.5); MEAN CORPUSCULAR VOLUME 106.3 fl (80.0-96.0); MONO # 1.5 10^3/uL (0.0-0.8); MONO % 35.3 % (2.0-8.0); NEUTROPHILS # 1.9 10^3/uL (1.5-8.5); NEUTROPHILS % 43.1 % (36.0-66.0); RED BLOOD COUNT 2.68 10^6/uL (4.30-6.10); WHITE BLOOD COUNT 4.3 10^3/uL (4.0-10.0)
[2022-05-20 07:05] LABS: PLATELET COUNT, AUTOMATED 20 10^3/uL (150-450)
[2022-05-20 07:39] LABS: ALBUMIN 2.6 G/DL (3.2-5.2); ALKALINE PHOSPHATASE 115 U/L (46-116); ALT/SGPT 14 U/L (7.0-40); AST/SGOT 14 U/L (<34); BILIRUBIN,TOTAL 0.5 MG/DL (0.3-1.2); BLOOD UREA NITROGEN 14 MG/DL (9-23); CALCIUM LEVEL 8.4 MG/DL (8.3-10.6); CARBON DIOXIDE LEVEL 27 MMOL/L (20-31); CHLORIDE LEVEL 106 MMOL/L (98-107); CREATININE FOR GFR 0.88 MG/DL (0.70-1.30); GLOMERULAR FILTRATION RATE > 60.0 (>49); GLUCOSE, FASTING 99 MG/DL (74-106); POTASSIUM SERUM 4.3 MMOL/L (3.5-5.1); SODIUM LEVEL 140 MMOL/L (136-145); TOTAL PROTEIN 5.1 G/DL (5.7-8.2)
[2022-05-20 08:40] VITALS: BP 118/74
[2022-05-20] MEDS: LevoFLOXacin 750 MG TABLET PO SCH (08:55)
[2022-05-20] MEDS: FLUCONAZOLE 100 MG TAB PO SCH (08:55)
[2022-05-20] MEDS: OMEPRAZOLE 20MG CAP PO SCH ×2 (08:55→20:26)
[2022-05-20] MEDS: LORATADINE 10 MG TAB PO SCH (08:55)
[2022-05-20] MEDS: valACYclovir HCL 500 MG TAB PO SCH ×2 (08:55→20:25)
[2022-05-20] MEDS: MULTIVITAMINS/MINERALS THERAP 1 TAB PO SCH (08:56)
[2022-05-20] MEDS: MIRALAX *UNIT DOSE* 17GM PACKET PO SCH (08:56)
[2022-05-20] MEDS: BACLOFEN 10 MG TAB PO SCH ×3 (08:56→20:26)
[2022-05-20] MEDS: DOXYCYCLINE HYCLATE 100MG TABLET PO SCH ×2 (08:56→20:26)
[2022-05-20] MEDS: CARVedilol 3.125 MG TAB PO SCH ×2 (08:56→20:25)
[2022-05-20] MEDS: FAMOTIDINE 20 MG TAB PO SCH (09:00)
[2022-05-20 12:13] VITALS: BP 102/65
[2022-05-20] MEDS: oxyCODONE 5MG TAB PO PRN (14:57)
[2022-05-20 16:00] VITALS: BP 108/76
[2022-05-20] MEDS: ROSUVASTATIN 10 MG TAB (CRESTOR) PO SCH (20:26)
[2022-05-20 20:50] VITALS: BP 108/86
[2022-05-21 05:53] VITALS: BP 103/73
[2022-05-21 06:04] LABS: BASO # 0.1 10^3/uL (0.0-0.2); BASO % 0.7 % (0.0-1.0); HEMATOCRIT 26.6 % (42.0-52.0); HEMOGLOBIN 9.3 g/dl (13.5-17.5); LYMPH # 0.4 10^3/uL (1.5-5.0); LYMPH % 3.9 % (24.0-44.0); MEAN CORPUSCULAR HEMOGLOBIN 36.8 pg (27.0-33.0); MEAN CORPUSCULAR VOLUME 105.1 fl (80.0-96.0); MONO % 35.7 % (2.0-8.0); NEUTROPHILS # 5.1 10^3/uL (1.5-8.5); NEUTROPHILS % 51.9 % (36.0-66.0); RED BLOOD COUNT 2.53 10^6/uL (4.30-6.10); WHITE BLOOD COUNT 9.9 10^3/uL (4.0-10.0)
[2022-05-21 06:09] LABS: MONO # 3.5 10^3/uL (0.0-0.8); PLATELET COUNT, AUTOMATED 14 10^3/uL (150-450)
[2022-05-21 06:41] LABS: ALBUMIN 2.6 G/DL (3.2-5.2); ALKALINE PHOSPHATASE 122 U/L (46-116); ALT/SGPT 11 U/L (7.0-40); AST/SGOT 13 U/L (<34); BILIRUBIN,TOTAL 0.3 MG/DL (0.3-1.2); BLOOD UREA NITROGEN 17 MG/DL (9-23); CALCIUM LEVEL 8.2 MG/DL (8.3-10.6); CARBON DIOXIDE LEVEL 25 MMOL/L (20-31); CHLORIDE LEVEL 104 MMOL/L (98-107); CREATININE FOR GFR 0.96 MG/DL (0.70-1.30); GLOMERULAR FILTRATION RATE > 60.0 (>49); GLUCOSE, FASTING 105 MG/DL (74-106); SODIUM LEVEL 138 MMOL/L (136-145)
[2022-05-21] MEDS: FAMOTIDINE 20 MG TAB PO SCH (08:49)
[2022-05-21] MEDS: FLUCONAZOLE 100 MG TAB PO SCH (08:50)
[2022-05-21] MEDS: valACYclovir HCL 500 MG TAB PO SCH (08:50)
[2022-05-21] MEDS: DOXYCYCLINE HYCLATE 100MG TABLET PO SCH (08:51)
[2022-05-21] MEDS: LORATADINE 10 MG TAB PO SCH (08:51)
[2022-05-21] MEDS: LevoFLOXacin 750 MG TABLET PO SCH (08:51)
[2022-05-21] MEDS: OMEPRAZOLE 20MG CAP PO SCH (08:51)
[2022-05-21] MEDS: BACLOFEN 10 MG TAB PO SCH (08:51)
[2022-05-21] MEDS: MULTIVITAMINS/MINERALS THERAP 1 TAB PO SCH (08:51)
[2022-05-21 08:52] VITALS: BP 103/73
[2022-05-21] MEDS: CARVedilol 3.125 MG TAB PO SCH (08:52)
[2022-05-21] MEDS: MIRALAX *UNIT DOSE* 17GM PACKET PO SCH (08:52)
[2022-05-21] MEDS ORDERED: diphenhydrAMINE 50MG/ML VIAL IV PRN (11:50)
[2022-05-21 12:02] VITALS: BP 109/76
[2022-05-21 13:29] VITALS: BP 105/75
[2022-05-21] MEDS ORDERED: LEVO1TAB40 PO (14:04)
[2022-05-21] MEDS ORDERED: DOXY100T PO (14:04)
[2022-05-21] MEDS ORDERED: MIRA3350 PO (14:04)
== END 2022-05-21 15:34 | disposition home or self-care (01) | DRG 809 ==
LOC: M ED 15:28 → M ED INP 18:14 → M PCU 21:33 → M MSPAV 05-20 16:02
PROVIDERS: ADMIT Internal Medicine; ATTEND Internal Medicine
PROC: 30233R1 Transfusion of Nonautologous Platelets into Peripheral Vein, Percutaneous Approach (ICD-10-PCS; principal; 2022-05-16)
PROC: 30233N1 Transfusion of Nonautologous Red Blood Cells into Peripheral Vein, Percutaneous Approach (ICD-10-PCS; 2022-05-19)
DX: D61.810 Antineoplastic chemotherapy induced pancytopenia (principal); C92.02 Acute myeloblastic leukemia, in relapse; Z94.81 Bone marrow transplant status; L02.415 Cutaneous abscess of right lower limb; D84.821 Immunodeficiency due to drugs; D70.1 Agranulocytosis secondary to cancer chemotherapy; D69.6 Thrombocytopenia, unspecified; R07.89 Other chest pain; I48.91 Unspecified atrial fibrillation; K21.9 Gastro-esophageal reflux disease without esophagitis; J30.2 Other seasonal allergic rhinitis; Z79.01 Long term (current) use of anticoagulants; Z79.899 Other long term (current) drug therapy; Z88.1 Allergy status to other antibiotic agents; Z88.8 Allergy status to other drugs, medicaments and biological substances; T45.1X5A Adverse effect of antineoplastic and immunosuppressive drugs, initial encounter; I95.89 Other hypotension

== ENCOUNTER → 2022-05-22 | Outpatient (REF) | payer MEDICARE ==
[~2022-05-22] MED LIST changes: +DOXY100T PO; +MAGN400T33 PO; +MIRA3350 PO
[2022-05-22 11:45] LABS: HEMATOCRIT 28.9 % (42.0-52.0); HEMOGLOBIN 9.8 g/dl (13.5-17.5); MEAN CORPUSCULAR HEMOGLOBIN 36.7 pg (27.0-33.0); MEAN CORPUSCULAR HGB CONC 33.9 g/dl (32.0-36.5); MEAN CORPUSCULAR VOLUME 108.2 fl (80.0-96.0); RED BLOOD COUNT 2.67 10^6/uL (4.30-6.10); WHITE BLOOD COUNT 12.8 10^3/uL (4.0-10.0)
[2022-05-22 11:53] LABS: PLATELET COUNT, AUTOMATED 28 10^3/uL (150-450)
== END ==
LOC: M LAB REF 11:07
PROVIDERS: ATTEND Internal Medicine
DX: D61.810 Antineoplastic chemotherapy induced pancytopenia (principal); C92.02 Acute myeloblastic leukemia, in relapse; Z94.81 Bone marrow transplant status; L02.415 Cutaneous abscess of right lower limb; D84.821 Immunodeficiency due to drugs; D70.1 Agranulocytosis secondary to cancer chemotherapy; D69.6 Thrombocytopenia, unspecified; R07.89 Other chest pain; I48.91 Unspecified atrial fibrillation; K21.9 Gastro-esophageal reflux disease without esophagitis; J30.2 Other seasonal allergic rhinitis; Z79.01 Long term (current) use of anticoagulants; Z79.899 Other long term (current) drug therapy; Z88.1 Allergy status to other antibiotic agents; Z88.8 Allergy status to other drugs, medicaments and biological substances; T45.1X5A Adverse effect of antineoplastic and immunosuppressive drugs, initial encounter; I95.89 Other hypotension

== ENCOUNTER 2022-05-26 11:40 | Emergency (ER) | payer MEDICARE ==
[~2022-05-26] VITALS: Ht 190.5 cm; Wt 89.4 kg
[2022-05-26] MEDS ORDERED: LIDOCAINE W/EPINEPHRINE 1% 20ML VIAL SC ONE (13:45)
[2022-05-26 15:09] VITALS: BP 118/72
== END 2022-05-26 15:10 | disposition home or self-care (01) ==
LOC: M ED 11:40
DX: L02.31 Cutaneous abscess of buttock (principal); Z86.73 Personal history of transient ischemic attack (TIA), and cerebral infarction without residual deficits; Z79.899 Other long term (current) drug therapy; Z88.1 Allergy status to other antibiotic agents; Z88.8 Allergy status to other drugs, medicaments and biological substances

== ENCOUNTER → 2022-06-13 | Outpatient (CLI) | payer MEDICARE ==
[~2022-06-13] MED LIST changes: +GASTROGRAFIN SOLUTION 30ML As Ordered ONE; +ISOVUE-370 76% 100ML VIAL As Ordered ONE
== END ==
LOC: M RAD 13:57
PROVIDERS: ATTEND Family Medicine
DX: C92.02 Acute myeloblastic leukemia, in relapse (principal); M54.50 Low back pain, unspecified; R93.3 Abnormal findings on diagnostic imaging of other parts of digestive tract; J90 Pleural effusion, not elsewhere classified; J98.11 Atelectasis
CPT/HCPCS: 71260; 74177; Q9963; Q9967

== ENCOUNTER 2022-07-05 11:14 | Inpatient (IN) | payer MEDICARE ==
[2022-07-05] VITALS (7 sets, daily range): BP systolic 96–121; BP diastolic 62–71
[~2022-07-05] VITALS: Ht 177.8 cm; Wt 86.0 kg
[~2022-07-05 11:14] MED LIST changes: +ALLO100T PO; -GASTROGRAFIN SOLUTION 30ML As Ordered ONE; +HYDR500C3 PO; -ISOVUE-370 76% 100ML VIAL As Ordered ONE; +SODIUM CHLORIDE 0.9% INJ 10 ML SYR IV SCH
[2022-07-05] MEDS ORDERED: NS 1,000 ML IV ONE ×2 (11:40→12:20)
[2022-07-05 12:17] LABS: HEMATOCRIT 21.7 % (42.0-52.0); HEMOGLOBIN 7.1 g/dl (13.5-17.5); MEAN CORPUSCULAR HEMOGLOBIN 34.3 pg (27.0-33.0); MEAN CORPUSCULAR HGB CONC 32.7 g/dl (32.0-36.5); MEAN CORPUSCULAR VOLUME 104.8 fl (80.0-96.0); RED BLOOD COUNT 2.07 10^6/uL (4.30-6.10)
[2022-07-05 12:27] LABS: WHITE BLOOD COUNT 186.6 10^3/uL (4.0-10.0)
[2022-07-05 12:28] LABS: PLATELET COUNT, AUTOMATED 21 10^3/uL (150-450)
[2022-07-05 12:31] LABS: INR 1.25
[2022-07-05 12:37] LABS: LIPASE 16 U/L (12-53)
[2022-07-05 12:39] LABS: ALBUMIN 2.6 G/DL (3.2-5.2); ALKALINE PHOSPHATASE 159 U/L (46-116); ALT/SGPT 10 U/L (7.0-40); AST/SGOT 17 U/L (<34); BILIRUBIN,DIRECT 0.1 MG/DL (<0.4); BILIRUBIN,TOTAL 0.3 MG/DL (0.3-1.2); BLOOD UREA NITROGEN 11 MG/DL (9-23); CALCIUM LEVEL 8.2 MG/DL (8.3-10.6); CARBON DIOXIDE LEVEL 27 MMOL/L (20-31); CHLORIDE LEVEL 105 MMOL/L (98-107); CREATININE FOR GFR 0.86 MG/DL (0.70-1.30); GLOMERULAR FILTRATION RATE > 60.0 (>49); GLUCOSE, FASTING 137 MG/DL (74-106); MAGNESIUM LEVEL 1.8 MG/DL (1.8-2.4); SODIUM LEVEL 138 MMOL/L (136-145)
[2022-07-05] MEDS ORDERED: FUROSEMIDE 20MG/2ML VIAL IV ONE (13:35)
[2022-07-05] MEDS ORDERED: POTASSIUM CHLORIDE 10MEQ SR TABLET PO ONE (13:35)
[2022-07-05 13:45] LABS: BASO # 0.1 10^3/uL (0.0-0.2); EOS # 0.1 10^3/uL (0.0-0.5); LYMPH # 2.5 10^3/uL (1.5-5.0); LYMPH % 1.3 % (24.0-44.0); NEUTROPHILS # 4.3 10^3/uL (1.5-8.5); NEUTROPHILS % 2.4 % (36.0-66.0)
[2022-07-05 13:48] LABS: MONO # 175.7 10^3/uL (0.0-0.8)
[2022-07-05 13:49] LABS: MONO % 94.2 % (2.0-8.0)
[2022-07-05] MEDS ORDERED: oxyCODONE 5MG TAB PO ONE (14:15)
[2022-07-05] MEDS ORDERED: ALLO300T2 PO (15:06)
[2022-07-05] MEDS ORDERED: METO1TAB87 PO (15:06)
[2022-07-05] MEDS ORDERED: HOME MED LIST COMPLETE! XX SCH (15:10)
[2022-07-05] MEDS ORDERED: ACETAMINOPHEN 500 MG TAB PO PRN (15:25)
[2022-07-05] MEDS ORDERED: ONDANSETRON 4MG ORAL DISINTEGRATING TAB PO PRN (15:25)
[2022-07-05] MEDS ORDERED: MAALOX 30 ML SUSP *UDC PO PRN (15:25)
[2022-07-05 16:46] LABS: IRON (FE) 114 UG/DL (65-175); PERCENT SATURATION 65.5 % (19.7-50.0); TOTAL IRON BINDING CAPACITY 174 UG/DL (250-425)
[2022-07-05 17:25] LABS: FERRITIN 1997.1 NG/ML (10.5-307.3)
[2022-07-05] MEDS ORDERED: RAMELTEON 8 MG TAB (ROZEREM) PO PRN (20:25)
[2022-07-05] MEDS ORDERED: hydrOXYzine 50 MG TAB PO ONE (20:25)
[2022-07-05] MEDS: METOPROLOL TART 12.5 MG PER 1/2 TAB PO SCH (21:00)
[2022-07-05] MEDS: oxyCODONE 5MG TAB PO PRN (21:02)
[2022-07-05] MEDS: valACYclovir HCL 500 MG TAB PO SCH (21:03)
[2022-07-05] MEDS: HYDROXYUREA 500 MG CAP PO SCH (21:03)
[2022-07-05] MEDS: MAGNESIUM OXIDE 400MG TAB (MAG-OX) PO SCH (21:03)
[2022-07-06 00:07] VITALS: BP 96/64
[2022-07-06] MEDS: NS 1,000 ML IV SCH ×4 (01:25→21:51)
[2022-07-06 01:45] VITALS: BP 95/61
[2022-07-06 02:11] LABS: HEMATOCRIT 24.6 % (42.0-52.0); HEMOGLOBIN 8.2 g/dl (13.5-17.5)
[2022-07-06 05:20] VITALS: BP 97/63
[2022-07-06 06:46] LABS: HEMATOCRIT 24.2 % (42.0-52.0); HEMOGLOBIN 8.3 g/dl (13.5-17.5); MEAN CORPUSCULAR HEMOGLOBIN 34.3 pg (27.0-33.0); MEAN CORPUSCULAR HGB CONC 34.3 g/dl (32.0-36.5); RED BLOOD COUNT 2.42 10^6/uL (4.30-6.10)
[2022-07-06 07:09] LABS: WHITE BLOOD COUNT 187.6 10^3/uL (4.0-10.0)
[2022-07-06 07:10] LABS: PLATELET COUNT, AUTOMATED 15 10^3/uL (150-450)
[2022-07-06 07:23] LABS: ALBUMIN 2.3 G/DL (3.2-5.2); ALKALINE PHOSPHATASE 144 U/L (46-116); ALT/SGPT 9 U/L (7.0-40); AST/SGOT 18 U/L (<34); BILIRUBIN,TOTAL 0.4 MG/DL (0.3-1.2); BLOOD UREA NITROGEN 12 MG/DL (9-23); CARBON DIOXIDE LEVEL 28 MMOL/L (20-31); CHLORIDE LEVEL 108 MMOL/L (98-107); CREATININE FOR GFR 0.86 MG/DL (0.70-1.30); GLOMERULAR FILTRATION RATE > 60.0 (>49); GLUCOSE, FASTING 116 MG/DL (74-106); MAGNESIUM LEVEL 1.6 MG/DL (1.8-2.4); POTASSIUM SERUM 3.2 MMOL/L (3.5-5.1); SODIUM LEVEL 141 MMOL/L (136-145); TOTAL PROTEIN 4.5 G/DL (5.7-8.2)
[2022-07-06] MEDS: oxyCODONE 5MG TAB PO PRN ×3 (07:55→22:19)
[2022-07-06] MEDS: MIRALAX *UNIT DOSE* 17GM PACKET PO SCH (07:59)
[2022-07-06] MEDS: MAGNESIUM OXIDE 400MG TAB (MAG-OX) PO SCH ×2 (08:01→21:21)
[2022-07-06] MEDS: MULTIVITAMINS/MINERALS THERAP 1 TAB PO SCH (08:01)
[2022-07-06] MEDS: valACYclovir HCL 500 MG TAB PO SCH ×2 (08:01→21:21)
[2022-07-06] MEDS: FAMOTIDINE 20 MG TAB PO SCH (08:01)
[2022-07-06] MEDS: HYDROXYUREA 500 MG CAP PO SCH ×2 (08:01→21:22)
[2022-07-06] MEDS: allopurinoL 300 MG TAB PO SCH (08:01)
[2022-07-06] MEDS: LORATADINE 10 MG TAB PO SCH (08:01)
[2022-07-06] MEDS: METOPROLOL TART 12.5 MG PER 1/2 TAB PO SCH ×2 (08:23→21:00)
[2022-07-06] MEDS: MAG SULF 1GM/100ML (MAG RUN) 1 GM in IV 1 EA IV SCH ×2 (09:37→10:54)
[2022-07-06] MEDS: POTASSIUM CHLORIDE 10MEQ SR TABLET PO SCH ×2 (09:38→21:21)
[2022-07-06 12:21] LABS: HEMATOCRIT 27.6 % (42.0-52.0); HEMOGLOBIN 9.1 g/dl (13.5-17.5)
[2022-07-06 14:00] VITALS: BP 104/71
[2022-07-06 18:25] LABS: HEMATOCRIT 24.9 % (42.0-52.0); HEMOGLOBIN 8.5 g/dl (13.5-17.5)
[2022-07-06 21:19] VITALS: BP 104/72
[2022-07-06 21:29] VITALS: BP 96/62
[2022-07-07] VITALS (11 sets, daily range): BP systolic 110–126; BP diastolic 71–94
[2022-07-07] MEDS ORDERED: MIRALAX *UNIT DOSE* 17GM PACKET PO ONE (02:00)
[2022-07-07] MEDS: oxyCODONE 5MG TAB PO PRN ×4 (02:24→20:04)
[2022-07-07 05:57] LABS: HEMOGLOBIN 8.3 g/dl (13.5-17.5); MEAN CORPUSCULAR HEMOGLOBIN 33.3 pg (27.0-33.0); MEAN CORPUSCULAR HGB CONC 33.2 g/dl (32.0-36.5); MEAN CORPUSCULAR VOLUME 100.4 fl (80.0-96.0); RED BLOOD COUNT 2.49 10^6/uL (4.30-6.10)
[2022-07-07 06:13] LABS: PLATELET COUNT, AUTOMATED 17 10^3/uL (150-450); WHITE BLOOD COUNT 248.6 10^3/uL (4.0-10.0)
[2022-07-07 06:27] LABS: ALBUMIN 2.4 G/DL (3.2-5.2); ALKALINE PHOSPHATASE 183 U/L (46-116); ALT/SGPT < 9 U/L (7.0-40); AST/SGOT 29 U/L (<34); BILIRUBIN,TOTAL 0.4 MG/DL (0.3-1.2); BLOOD UREA NITROGEN 14 MG/DL (9-23); CALCIUM LEVEL 7.9 MG/DL (8.3-10.6); CARBON DIOXIDE LEVEL 25 MMOL/L (20-31); CHLORIDE LEVEL 107 MMOL/L (98-107); CREATININE FOR GFR 0.81 MG/DL (0.70-1.30); GLOMERULAR FILTRATION RATE > 60.0 (>49); GLUCOSE, FASTING 128 MG/DL (74-106); MAGNESIUM LEVEL 1.9 MG/DL (1.8-2.4); SODIUM LEVEL 140 MMOL/L (136-145); TOTAL PROTEIN 4.8 G/DL (5.7-8.2)
[2022-07-07 07:02] LABS: ANISOCYTOSIS 4+; BASOPHILS 1 % (0-1); LYMPHOCYTES 2 % (16-44); MONOCYTES 91 % (0-5); NEUTROPHILS 6 % (28-66); PLATELET ESTIMATE DECREASED (NORMAL)
[2022-07-07] MEDS: NS 1,000 ML IV SCH (08:32)
[2022-07-07] MEDS: MULTIVITAMINS/MINERALS THERAP 1 TAB PO SCH (08:33)
[2022-07-07] MEDS: MAGNESIUM OXIDE 400MG TAB (MAG-OX) PO SCH ×2 (08:33→20:07)
[2022-07-07] MEDS: HYDROXYUREA 500 MG CAP PO SCH ×2 (08:34→20:05)
[2022-07-07] MEDS: valACYclovir HCL 500 MG TAB PO SCH ×2 (08:34→20:04)
[2022-07-07] MEDS: LORATADINE 10 MG TAB PO SCH (08:34)
[2022-07-07] MEDS: allopurinoL 300 MG TAB PO SCH (08:34)
[2022-07-07] MEDS: FAMOTIDINE 20 MG TAB PO SCH (08:34)
[2022-07-07] MEDS: METOPROLOL TART 12.5 MG PER 1/2 TAB PO SCH ×2 (08:36→20:05)
[2022-07-07] MEDS: MIRALAX *UNIT DOSE* 17GM PACKET PO SCH (08:36)
[2022-07-07] MEDS: POTASSIUM CHLORIDE 10MEQ SR TABLET PO SCH ×4 (08:40→20:06)
[2022-07-07] MEDS ORDERED: hydrOXYzine 50 MG TAB PO ONE (20:00)
[2022-07-07] MEDS ORDERED: FUROSEMIDE 20MG/2ML VIAL IV ONE (20:00)
[2022-07-07] MEDS ORDERED: MORPHINE 2 MG/ML 1ML VIAL IV ONE (22:00)
[2022-07-07] MEDS ORDERED: IPRATROPIUM 0.02% SOLN 0.5MG 2.5ML NEB INH PRN (22:40)
[2022-07-07] MEDS ORDERED: LevoFLOXacin IV 750 MG in IV 1 EA IV SCH (23:00)
[2022-07-07 23:20] LABS: VENOUS BASE EXCESS -4.2 (-2.0-2.0); VENOUS HCO3 18.9 MMOL/L (23.0-27.0); VENOUS O2 SATURATION 86.7 % (60.0-80.0); VENOUS PARTIAL PRESSURE CO2 28.5 mmHg (38.0-50.0); VENOUS PARTIAL PRESSURE O2 43.1 mmHg (30.0-50.0); VENOUS PH 7.439 UNITS (7.330-7.430); VENOUS STANDARD HCO3 20.8 MMOL/L; VENOUS TOTAL CO2 19.8 MMOL/L (24.0-28.0)
[2022-07-08] MEDS ORDERED: VANCOMYCIN HCL 1,000 MG, VIAL MATE ADAPTER 1 EACH in NS 250 ML IV ONE ×3
[2022-07-08 00:20] LABS: HEMOGLOBIN 10.3 g/dl (13.5-17.5)
[2022-07-08] MEDS ORDERED: VANCOMYCIN HCL 750 MG, VIAL MATE ADAPTER 1 EACH in D5W 250 ML IV ONE (01:00)
[2022-07-08 05:33] VITALS: BP 115/82
[2022-07-08] MEDS: POTASSIUM CHLORIDE 10MEQ SR TABLET PO SCH (09:00)
[2022-07-08] MEDS: MAGNESIUM OXIDE 400MG TAB (MAG-OX) PO SCH (09:00)
[2022-07-08] MEDS: HYDROXYUREA 500 MG CAP PO SCH (09:00)
[2022-07-08] MEDS: FAMOTIDINE 20 MG TAB PO SCH (09:00)
[2022-07-08] MEDS: valACYclovir HCL 500 MG TAB PO SCH (09:00)
[2022-07-08] MEDS: MIRALAX *UNIT DOSE* 17GM PACKET PO SCH (09:00)
[2022-07-08] MEDS: MULTIVITAMINS/MINERALS THERAP 1 TAB PO SCH (09:00)
[2022-07-08] MEDS ORDERED: VANCOMYCIN HCL 750 MG, VIAL MATE ADAPTER 1 EACH in D5W 250 ML IV SCH (09:00)
[2022-07-08] MEDS: allopurinoL 300 MG TAB PO SCH (09:00)
[2022-07-08] MEDS: LORATADINE 10 MG TAB PO SCH (09:00)
[2022-07-08 09:44] VITALS: BP 111/80
[2022-07-08] MEDS: METOPROLOL TART 12.5 MG PER 1/2 TAB PO SCH (09:44)
[2022-07-08] MEDS ORDERED: VANCOMYCIN HCL 500 MG in D5W MINI-BAG PLUS 100 ML IV SCH (10:00)
[2022-07-08] MEDS ORDERED: ONDANSETRON 4MG 2ML VIAL IV PRN (10:35)
[2022-07-08] MEDS ORDERED: LORazepam 2 MG/ML 1ML VIAL IV PRN (10:35)
[2022-07-08] MEDS ORDERED: IPRATROPIUM 0.5MG/ALBUTEROL 2.5MG INH SOL UD 3ML (DUONEB) NEB PRN (12:25)
[2022-07-08] MEDS: MORPHINE 2 MG/ML 1ML VIAL IV PRN ×2 (12:31→15:30)
== END 2022-07-08 16:37 | disposition expired | DRG 834 ==
LOC: M ED 11:14 → M ED INP 15:23 → M MSPAV 17:41
PROVIDERS: ADMIT Family Medicine; ATTEND Family Medicine
PROC: 30233N1 Transfusion of Nonautologous Red Blood Cells into Peripheral Vein, Percutaneous Approach (ICD-10-PCS; principal; 2022-07-05)
DX: C92.00 Acute myeloblastic leukemia, not having achieved remission (principal); J69.0 Pneumonitis due to inhalation of food and vomit; J96.01 Acute respiratory failure with hypoxia; Z94.81 Bone marrow transplant status; Z92.3 Personal history of irradiation; Z92.21 Personal history of antineoplastic chemotherapy; D69.6 Thrombocytopenia, unspecified; I48.0 Paroxysmal atrial fibrillation; Z66 Do not resuscitate; K21.9 Gastro-esophageal reflux disease without esophagitis; Z87.891 Personal history of nicotine dependence; Z79.899 Other long term (current) drug therapy; Z88.8 Allergy status to other drugs, medicaments and biological substances; Z20.822 Contact with and (suspected) exposure to COVID-19